=== PATIENT | female | born 1935 | race Caucasian/White ===

== ENCOUNTER → 2016-05-25 | Outpatient (CLI) | payer MEDICARE, BC ==
--- NOTE | 2016-05-25 16:06 | CR ---
EXAMINATION: Left knee HISTORY: Pain COMPARISON: 05/29/2016 TECHNIQUE: Single view FINDINGS/IMPRESSION: No acute osseous abnormality, dislocation, or fracture. Bone mineralization and joint spaces are grossly preserved.
== END ==
LOC: MW.CHORTHO 08:00
PROVIDERS: ATTEND Orthopaedic Surgery
DX: M25.562 Pain in left knee (principal); M17.12 Unilateral primary osteoarthritis, left knee
CPT/HCPCS: 20610; 73560-26-LT; 73560-LT; 99204; J1040

== ENCOUNTER 2017-07-07 18:48 | Inpatient (IN) | payer MEDICARE, BC ==
--- NOTE | 2017-07-07 19:14 | EDM.PDOC ---
ED HPI GENERAL MEDICAL PROBLEM - General Chief Complaint: Abdominal Pain Stated Complaint: STOMACH PAIN Time Seen by Provider: 07/07/17 19:13 Source of Information: Reports: Patient History Limitations: Reports: No Limitations - History of Present Illness INITIAL COMMENTS - FREE TEXT/NARRATIVE: HISTORY AND PHYSICAL: []82-year-old female presenting with abdominal pain bloating History of Present Illness: []She does been working on this for the last 4 weeks pain is increased today Patient has history of having hysterectomy she also has history of intraductal breast carcinoma Diverticulosis Patient lives at home Review of Systems: As per history of present illness and below otherwise all systems reviewed and negative. Past medical history: As per history of present illness and as reviewed below otherwise noncontributory. Surgical history: As per history of present illness and as reviewed below otherwise noncontributory. Social history: No reported history of drug or alcohol abuse. Family history: As per history of present illness and as reviewed below otherwise noncontributory. Physical exam: Alert and oriented female answering questions appropriately HEENT: Atraumatic, normocehpalic, pupils reactive, negative for conjunctival pallor or scleral icterus, mucous membranes moist, throat clear, neck supple, nontender, trachea midline. Lungs: Clear to auscultation, breath sounds equal bilaterally, chest non tender. Heart: S1S2, regular, negative for clicks, rubs, or JVD. Abdomen: Soft, nondistended, nontender. Negative for masses or hepatossplenmegaly. Negative for costovertebral tenderness. Pelvis: Stable nontender. Genitourinary: Deferred. Rectal: Deferred Extremities: Atraumatic, negative for cords or calf pain. Neurovascular unremarkable. Neuro: Awake, alert, oriented. Cranial nerves II through XII unremarkable. Cerebellum unremarkable. Motor and sensory unremarkable throughout. Exam nonfocal. Discussed this case with Dr. Nick Gannon who would recommend she be treated medically and he would be consulted for her. History this case with Dr. Munoz who is in agreement and will admit her inpatient consult for Dr. Gannon. With palpation and manipulation the abdomen her hernia on the right femoral region was reduced and pain was relieved significantly. Diagnostics: []CBC CMP blood cultures CT abdomen with contrast UA urine culture Therapeutics: []IV therapy Levaquin 750 IV Impression: []Colonic obstruction UTI Right femoral hernia Plan: []Admit as inpatient Definitive disposition and diagnosis as appropriate pending reevaluation and review of above. Onset: Gradual Duration: Week(s): (4) Location: Reports: Abdomen Quality: Reports: Ache Severity: Moderate Abdominal Pain Score (Numeric/FACES): 7 - Related Data Allergies Allergy/AdvReac Type Severity Reaction Status Date / Time Sulfa (Sulfonamide Allergy Nausea and Verified 04/21/16 08:59 Antibiotics) Vomiting Home Meds: Home Meds Anastrozole [Arimidex] 1 mg PO DAILY 07/07/17 [History] Past Medical History HEENT History: Reports: Cataract, Macular Degeneration Other HEENT History: wears glasses, has hearing aids but does not wear them Gastrointestinal History: Reports: None Genitourinary History: Reports: None [employer] History: Reports: Oncologic (Cancer) History: Reports: Breast Other Oncologic History: hx of endometrial cancer - Past Surgical History Head Surgeries/Procedures: Reports: None HEENT Surgical History: Reports: Cataract Surgery GI Surgical History: Reports: Colonoscopy Female Surgical History: Reports: Breast Biopsy, Hysterectomy, Oophorectomy Musculoskeletal Surgical History: Reports: Shoulder Surgery Social & Family History - Family History Family Medical History: Noncontributory - Tobacco Use Smoking Status *Q: Never Smoker Month/Year Tobacco Last Used: quit smoking 35 yrs ago Second Hand Smoke Exposure: No - Caffeine Use Caffeine Use: Reports: Coffee - Recreational Drug Use Recreational Drug Use: No ED ROS GENERAL - Review of Systems Review Of Systems: ROS reveals no pertinent complaints other than HPI. ED EXAM, GI/ABD - Physical Exam Exam: See Below (see dictation) Course - Vital Signs Last Recorded V/S: Last Vital Signs Temp 36.2 C 07/07/17 19:02 Pulse 84 07/07/17 20:46 Resp 12 07/07/17 20:46 BP 156/74 H 07/07/17 20:46 Pulse Ox 96 07/07/17 20:46 - Orders/Labs/Meds Orders: Active Orders 24 hr Category Date Time Status Patient Status [ADT] Stat ADT 07/07/17 21:17 Ordered EKG Documentation Completion [RC] STAT Care 07/07/17 19:18 Active Abdomen Pelvis w Cont [CT] Stat Exams 07/07/17 19:22 Taken UA W/MICROSCOPIC [URIN] Stat Lab 07/07/17 19:30 Ordered Levofloxacin/Dextrose 5%-Water [Levaquin in D5W 750 MG/ Med 07/07/17 21:19 Ordered 150 ML] 750 mg Premix Bag 1 bag IV ONETIME Sodium Chloride 0.9% [Normal Saline] 500 ml Med 07/07/17 21:30 Ordered IV ASDIRECTED Sodium Chloride 0.9% [Normal Saline] 500 ml Med 07/07/17 21:30 Ordered IV STAT Sodium Chloride 0.9% [Saline Flush] Med 07/07/17 19:18 Active 10 ml FLUSH ASDIRECTED PRN Sodium Chloride 0.9% [Saline Flush] Med 07/07/17 19:18 Active 2.5 ml FLUSH ASDIRECTED PRN Saline Lock Insert [OM.PC] Stat Oth 07/07/17 19:18 Ordered Medication Orders Levofloxacin/Dextrose 750 mg/ (Premix) 150 mls @ 100 mls/hr IV ONETIME ONE Stop: 07/07/17 22:48 Sodium Chloride (Normal Saline) 500 mls @ 125 mls/hr IV ASDIRECTED MALDONADO Sodium Chloride (Normal Saline) 500 mls @ 125 mls/hr IV STAT MALDONADO Sodium Chloride (Saline Flush) 10 ml FLUSH ASDIRECTED PRN PRN Reason: Keep Vein Open Sodium Chloride (Saline Flush) 2.5 ml FLUSH ASDIRECTED PRN PRN Reason: Keep Vein Open Labs: Laboratory Tests 07/07/17 07/07/17 07/07/17 Range/Units 19:30 19:35 19:35 WBC 7.76 (4.0-11.0) K/uL RBC 4.63 (4.30-5.90) M/uL Hgb 14.0 (12.0-16.0) g/dL Hct 41.1 (36.0-46.0) % MCV 88.8 (80.0-98.0) fL MCH 30.2 (27.0-32.0) pg MCHC 34.1 (31.0-37.0) g/dL RDW Std Deviation 42.0 (28.0-62.0) fl RDW Coeff of Irma 13 (11.0-15.0) % Plt Count 158 (150-400) K/uL MPV 11.90 (7.40-12.00) fL Neut % (Auto) 62.1 (48.0-80.0) % Lymph % (Auto) 20.2 (16.0-40.0) % [place] % (Auto) 15.9 H (0.0-15.0) % Eos % (Auto) 1.7 (0.0-7.0) % Baso % (Auto) 0.1 (0.0-1.5) % Neut # (Auto) 4.8 (1.4-5.7) K/uL Lymph # (Auto) 1.6 (0.6-2.4) K/uL [place] # (Auto) 1.2 H (0.0-0.8) K/uL Eos # (Auto) 0.1 (0.0-0.7) K/uL Baso # (Auto) 0.0 (0.0-0.1) K/uL Nucleated RBC % 0.0 /100WBC Nucleated RBCs # 0 K/uL INR Sodium 139 (136-145) mmol/L Potassium 3.1 L (3.5-5.1) mmol/L Chloride 103 (98-107) mmol/L Carbon Dioxide 27.4 (21.0-32.0) mmol/L BUN 17 (7.0-18.0) mg/dL Creatinine 0.7 (0.6-1.0) mg/dL Est Cr Clr Drug Dosing 49.49 mL/min Estimated GFR (MDRD) > 60.0 ml/min Glucose 122 H (74-106) mg/dL Calcium 9.6 (8.5-10.1) mg/dL Total Bilirubin 0.6 (0.2-1.0) mg/dL AST 21 (15-37) IU/L ALT 17 (14-63) IU/L Alkaline Phosphatase 68 (46-116) U/L Troponin I < 0.050 (0.000-0.056) ng/mL Total Protein 7.6 (6.4-8.2) g/dL Albumin 4.0 (3.4-5.0) g/dL Globulin 3.6 H (2.0-3.5) g/dL Albumin/Globulin Ratio 1.1 L (1.3-2.8) Urine Color YELLOW Urine Appearance SLT CLOUDY Urine pH 5.5 (5.0-8.0) Ur Specific [place] >= 1.030 (1.001-1.035) Urine Protein 30 (NEGATIVE) mg/dL Urine Glucose (UA) NEGATIVE (NEGATIVE) mg/dL Urine Ketones 15 H (NEGATIVE) mg/dL Urine Occult Blood NEGATIVE (NEGATIVE) Urine Nitrite NEGATIVE (NEGATIVE) Urine Bilirubin SMALL H (NEGATIVE) Urine Ictotest NEGATIVE Urine Urobilinogen 0.2 (<2.0) EU/dL Ur Leukocyte Esterase TRACE (NEGATIVE) Urine RBC 1-3 (0-2/HPF) Urine WBC 8-10 (0-5/HPF) Ur Epithelial Cells FEW (NONE-FEW) Calcium Oxalate Crystal FEW (NEGATIVE) Urine Bacteria 1+ H (NEGATIVE) 07/07/17 Range/Units 19:35 WBC (4.0-11.0) K/uL RBC (4.30-5.90) M/uL Hgb (12.0-16.0) g/dL Hct (36.0-46.0) % MCV (80.0-98.0) fL MCH (27.0-32.0) pg MCHC (31.0-37.0) g/dL RDW Std Deviation (28.0-62.0) fl RDW Coeff of [place] (11.0-15.0) % Plt Count (150-400) K/uL MPV (7.40-12.00) fL Neut % (Auto) (48.0-80.0) % Lymph % (Auto) (16.0-40.0) % [place] % (Auto) (0.0-15.0) % Eos % (Auto) (0.0-7.0) % Baso % (Auto) (0.0-1.5) % Neut # (Auto) (1.4-5.7) K/uL Lymph # (Auto) (0.6-2.4) K/uL [place] # (Auto) (0.0-0.8) K/uL Eos # (Auto) (0.0-0.7) K/uL Baso # (Auto) (0.0-0.1) K/uL Nucleated RBC % /100WBC Nucleated RBCs # K/uL INR 0.99 Sodium (136-145) mmol/L Potassium (3.5-5.1) mmol/L Chloride (98-107) mmol/L Carbon Dioxide (21.0-32.0) mmol/L BUN (7.0-18.0) mg/dL Creatinine (0.6-1.0) mg/dL Est Cr Clr Drug Dosing mL/min Estimated GFR (MDRD) ml/min Glucose (74-106) mg/dL Calcium (8.5-10.1) mg/dL Total Bilirubin (0.2-1.0) mg/dL AST (15-37) IU/L ALT (14-63) IU/L Alkaline Phosphatase (46-116) U/L Troponin I (0.000-0.056) ng/mL Total Protein (6.4-8.2) g/dL Albumin (3.4-5.0) g/dL Globulin (2.0-3.5) g/dL Albumin/Globulin Ratio (1.3-2.8) Urine Color Urine Appearance Urine pH (5.0-8.0) Ur Specific [place] (1.001-1.035) Urine Protein (NEGATIVE) mg/dL Urine Glucose (UA) (NEGATIVE) mg/dL Urine Ketones (NEGATIVE) mg/dL Urine Occult Blood (NEGATIVE) Urine Nitrite (NEGATIVE) Urine Bilirubin (NEGATIVE) Urine Ictotest Urine Urobilinogen (<2.0) EU/dL Ur Leukocyte Esterase (NEGATIVE) Urine RBC (0-2/HPF) Urine WBC (0-5/HPF) Ur Epithelial Cells (NONE-FEW) Calcium Oxalate Crystal (NEGATIVE) Urine Bacteria (NEGATIVE) Meds: Medications Generic Name Dose Route Start Last Admin Trade Name Freq PRN Reason Stop Dose Admin Levofloxacin/Dextrose 750 mg/ 150 mls @ 100 mls/hr 07/07/17 21:19 Premix IV 07/07/17 22:48 ONETIME ONE Sodium Chloride 500 mls @ 125 mls/hr 07/07/17 21:30 Normal Saline IV ASDIRECTED MALDONADO Sodium Chloride 500 mls @ 125 mls/hr 07/07/17 21:30 Normal Saline IV STAT MALDONADO Sodium Chloride 10 ml 07/07/17 19:18 Saline Flush FLUSH ASDIRECTED PRN Keep Vein Open Sodium Chloride 2.5 ml 07/07/17 19:18 Saline Flush FLUSH ASDIRECTED PRN Keep Vein Open Discontinued Medications Generic Name Dose Route Start Last Admin Trade Name Freq PRN Reason Stop Dose Admin Iopamidol 100 ml 07/07/17 19:42 07/07/17 19:44 Isovue Multipack-370 (76%) IVPUSH 07/07/17 19:43 100 ml ONETIME STA Administration Departure - Departure Time of Disposition: 21:27 Disposition: Admitted As Inpatient 64 Condition: Good Clinical Impression: Colonic obstruction, Femoral hernia of right side UTI (urinary tract infection) Qualifiers: Urinary tract infection type: acute cystitis Hematuria presence: without hematuria Qualified Code(s): N30.00 - Acute cystitis without hematuria - Discharge Information Referrals: Asad Johnson MD [Primary Care Provider] - Forms: ED Department Discharge - My Orders Last 24 Hours: My Active Orders 07/07/17 19:18 EKG Documentation Completion [RC] STAT Sodium Chloride 0.9% [Saline Flush] 10 ml FLUSH ASDIRECTED PRN Sodium Chloride 0.9% [Saline Flush] 2.5 ml FLUSH ASDIRECTED PRN Saline Lock Insert [OM.PC] Stat 07/07/17 19:22 Abdomen Pelvis w Cont [CT] Stat 07/07/17 19:30 UA W/MICROSCOPIC [URIN] Stat 07/07/17 21:17 Patient Status [ADT] Stat 07/07/17 21:19 Levofloxacin/Dextrose 5%-Water [Levaquin in D5W 750 MG/150 ML] 750 mg Premix Bag 1 bag IV ONETIME 07/07/17 21:30 Sodium Chloride 0.9% [Normal Saline] 500 ml IV ASDIRECTED Sodium Chloride 0.9% [Normal Saline] 500 ml IV STAT - Assessment/Plan Last 24 Hours: My Active Orders 07/07/17 19:18 EKG Documentation Completion [RC] STAT Sodium Chloride 0.9% [Saline Flush] 10 ml FLUSH ASDIRECTED PRN Sodium Chloride 0.9% [Saline Flush] 2.5 ml FLUSH ASDIRECTED PRN Saline Lock Insert [OM.PC] Stat 07/07/17 19:22 Abdomen Pelvis w Cont [CT] Stat 07/07/17 19:30 UA W/MICROSCOPIC [URIN] Stat 07/07/17 21:17 Patient Status [ADT] Stat 07/07/17 21:19 Levofloxacin/Dextrose 5%-Water [Levaquin in D5W 750 MG/150 ML] 750 mg Premix Bag 1 bag IV ONETIME 07/07/17 21:30 Sodium Chloride 0.9% [Normal Saline] 500 ml IV ASDIRECTED Sodium Chloride 0.9% [Normal Saline] 500 ml IV STAT
[2017-07-07] MEDS ORDERED: Sodium Chloride 0.9% 10 ML Syringe FLUSH PRN (19:18)
[2017-07-07] MEDS ORDERED: Sodium Chloride 0.9% 2.5 ML Syringe FLUSH PRN (19:18)
[2017-07-07] MEDS ORDERED: Iopamidol 755 MG/ML 200 ML Multipack Bottle IVPUSH STA (19:42)
[2017-07-07 20:09] LABS: SODIUM,NA 139 mmol/L (136-145)
[2017-07-07 20:10] LABS: CHLORIDE,CL 103 mmol/L (98-107)
[2017-07-07] MEDS ORDERED: Levofloxacin/Dextrose 5%-Water 750 MG in Premix Bag 1 BAG IV ONE (21:19)
[2017-07-07] MEDS: Sodium Chloride 0.9% 500 ML IV SCH (21:26)
[2017-07-07] MEDS ORDERED: Sodium Chloride 0.9% 500 ML IV SCH (21:30)
--- NOTE | 2017-07-07 22:05 | PCM.CONS ---
<Contreras Wick - Last Filed: 07/07/17 21:58> H&P History of Present Illness - General Date of Service: 07/07/17 Admit Problem/Dx: Admission Diagnosis/Problem Admission Diagnosis/Problem Obstruction of colon Source of Information: Patient, Family, Old Records - History of Present Illness Initial Comments - Free Text/Narative: Mrs. Johnson is a 82 yr old female who presents to the ER today for evaluation of abdominal pain. She has had issues over the past 4 weeks of abdominal discomfort and alternating bowel habits. At times she would become constipated leading to nausea and emesis subsequently followed by diarrhea. In the last 4 days her abdominal pain has been worse and she decided it was time to be evaluated. The pain in generalized in her lower abdomen bilaterally and radiates up both sides. It is intermittent and crampy. 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 Lifting him early today she felt a bulge in her right groin with associated pain in that area as well. Her last bowel movement was earlier today. She is passing less flatus also. At this time she denies nausea, vomiting, fever, chills, chest pain, or SOB. She believes her last colonoscopy was about 5 yrs ago and she was not aware of any abnormalities at that time, although a prior colonoscopy did have polyps. Her PMH is notable for right breast cancer s/p partial mastectomy and medical treatment. She had a [facility] BSO for endometrial cancer in the . Abdominal Pain Score (Numeric/FACES): 7 - Related Data Allergies/Adverse Reactions: Allergies Allergy/AdvReac Type Severity Reaction Status Date / Time Sulfa (Sulfonamide Allergy Nausea and Verified 04/21/16 08:59 Antibiotics) Vomiting Home Medications: Home Meds Anastrozole [Arimidex] 1 mg PO DAILY 07/07/17 [History] Past Medical History HEENT History: Reports: Cataract, Macular Degeneration Other HEENT History: wears glasses, has hearing aids but does not wear them Cardiovascular History: Reports: Other (See Below) (History of nuclear stress test followed by angiogram in that was normal per her report.) Respiratory History: Reports: None Gastrointestinal History: Reports: None, Colon Polyp, Other (See Below) Other Gastrointestinal History: Irregular bowel habits over last 1 month. 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 OB/BYN History: JUAN w/BSO Oncologic (Cancer) History: Reports: Breast Other Oncologic History: hx of endometrial cancer - Past Surgical History Head Surgeries/Procedures: Reports: None HEENT Surgical History: Reports: Cataract Surgery GI Surgical History: Reports: Colonoscopy Female Surgical History: Reports: Breast Biopsy, Hysterectomy, Oophorectomy, Other (See Below) (Partial mastectomy with SLND.) Musculoskeletal Surgical History: Reports: Shoulder Surgery Social & Family History - Family History Family Medical History: Noncontributory - Tobacco Use Smoking Status *Q: Never Smoker Month/Year Tobacco Last Used: quit smoking 35 yrs ago Second Hand Smoke Exposure: No - Caffeine Use Caffeine Use: Reports: Coffee - Recreational Drug Use Recreational Drug Use: No H&P Review of Systems - Review of Systems: Review Of Systems: See Below General: Reports: Other (Denies fever, chills. ) Pulmonary: Reports: No Symptoms (No SOB or pulmonary problems. ) Cardiovascular: Reports: No Symptoms (No chest pain or current cardiac problems) Gastrointestinal: Reports: Abdominal Pain, Constipation, Diarrhea (Currently denies nausea and vomiting. Endorses abdominal distension. ) Exam - Exam Exam: See Below - Vital Signs Vital Signs: Last Vital Signs Temp 36.2 C 07/07/17 19:02 Pulse 84 07/07/17 20:46 Resp 12 07/07/17 20:46 BP 156/74 H 07/07/17 20:46 Pulse Ox 96 07/07/17 20:46 Weight: 145 lb - Exam General: Alert, Cooperative, Other (No acute distress. ) HEENT: Conjunctiva Clear Neck: Supple, Trachea Midline Lungs: Clear to Auscultation, Normal Respiratory Effort Cardiovascular: Regular Rate GI/Abdominal Exam: Soft, Other (Mild distension. Generalized abdominal discomfort. Palpable bulge in right groin. No rebound or peritoneal signs. ) Extremities: Normal Inspection, No Pedal Edema - Patient Data Lab Results Last 24 hrs: Laboratory Results - last 24 hr 07/07/17 07/07/17 07/07/17 Range/Units 19:30 19:35 19:35 WBC 7.76 (4.0-11.0) K/uL RBC 4.63 (4.30-5.90) M/uL Hgb 14.0 (12.0-16.0) g/dL Hct 41.1 (36.0-46.0) % MCV 88.8 (80.0-98.0) fL MCH 30.2 (27.0-32.0) pg MCHC 34.1 (31.0-37.0) g/dL RDW Std Deviation 42.0 (28.0-62.0) fl RDW Coeff of Irma 13 (11.0-15.0) % Plt Count 158 (150-400) K/uL MPV 11.90 (7.40-12.00) fL Neut % (Auto) 62.1 (48.0-80.0) % Lymph % (Auto) 20.2 (16.0-40.0) % [place] % (Auto) 15.9 H (0.0-15.0) % Eos % (Auto) 1.7 (0.0-7.0) % Baso % (Auto) 0.1 (0.0-1.5) % Neut # (Auto) 4.8 (1.4-5.7) K/uL Lymph # (Auto) 1.6 (0.6-2.4) K/uL [place] # (Auto) 1.2 H (0.0-0.8) K/uL Eos # (Auto) 0.1 (0.0-0.7) K/uL Baso # (Auto) 0.0 (0.0-0.1) K/uL Nucleated RBC % 0.0 /100WBC Nucleated RBCs # 0 K/uL INR Sodium 139 (136-145) mmol/L Potassium 3.1 L (3.5-5.1) mmol/L Chloride 103 (98-107) mmol/L Carbon Dioxide 27.4 (21.0-32.0) mmol/L BUN 17 (7.0-18.0) mg/dL Creatinine 0.7 (0.6-1.0) mg/dL Est Cr Clr Drug Dosing 49.49 mL/min Estimated GFR (MDRD) > 60.0 ml/min Glucose 122 H (74-106) mg/dL Calcium 9.6 (8.5-10.1) mg/dL Total Bilirubin 0.6 (0.2-1.0) mg/dL AST 21 (15-37) IU/L ALT 17 (14-63) IU/L Alkaline Phosphatase 68 (46-116) U/L Troponin I < 0.050 (0.000-0.056) ng/mL Total Protein 7.6 (6.4-8.2) g/dL Albumin 4.0 (3.4-5.0) g/dL Globulin 3.6 H (2.0-3.5) g/dL Albumin/Globulin Ratio 1.1 L (1.3-2.8) Urine Color YELLOW Urine Appearance SLT CLOUDY Urine pH 5.5 (5.0-8.0) Ur Specific Dalton >= 1.030 (1.001-1.035) Urine Protein 30 (NEGATIVE) mg/dL Urine Glucose (UA) NEGATIVE (NEGATIVE) mg/dL Urine Ketones 15 H (NEGATIVE) mg/dL Urine Occult Blood NEGATIVE (NEGATIVE) Urine Nitrite NEGATIVE (NEGATIVE) Urine Bilirubin SMALL H (NEGATIVE) Urine Ictotest NEGATIVE Urine Urobilinogen 0.2 (<2.0) EU/dL Ur Leukocyte Esterase TRACE (NEGATIVE) Urine RBC 1-3 (0-2/HPF) Urine WBC 8-10 (0-5/HPF) Ur Epithelial Cells FEW (NONE-FEW) Calcium Oxalate Crystal FEW (NEGATIVE) Urine Bacteria 1+ H (NEGATIVE) 07/07/17 Range/Units 19:35 WBC (4.0-11.0) K/uL RBC (4.30-5.90) M/uL Hgb (12.0-16.0) g/dL Hct (36.0-46.0) % MCV (80.0-98.0) fL MCH (27.0-32.0) pg MCHC (31.0-37.0) g/dL RDW Std Deviation (28.0-62.0) fl RDW Coeff of Irma (11.0-15.0) % Plt Count (150-400) K/uL MPV (7.40-12.00) fL Neut % (Auto) (48.0-80.0) % Lymph % (Auto) (16.0-40.0) % [place] % (Auto) (0.0-15.0) % Eos % (Auto) (0.0-7.0) % Baso % (Auto) (0.0-1.5) % Neut # (Auto) (1.4-5.7) K/uL Lymph # (Auto) (0.6-2.4) K/uL [place] # (Auto) (0.0-0.8) K/uL Eos # (Auto) (0.0-0.7) K/uL Baso # (Auto) (0.0-0.1) K/uL Nucleated RBC % /100WBC Nucleated RBCs # K/uL INR 0.99 Sodium (136-145) mmol/L Potassium (3.5-5.1) mmol/L Chloride (98-107) mmol/L Carbon Dioxide (21.0-32.0) mmol/L BUN (7.0-18.0) mg/dL Creatinine (0.6-1.0) mg/dL Est Cr Clr Drug Dosing mL/min Estimated GFR (MDRD) ml/min Glucose (74-106) mg/dL Calcium (8.5-10.1) mg/dL Total Bilirubin (0.2-1.0) mg/dL AST (15-37) IU/L ALT (14-63) IU/L Alkaline Phosphatase (46-116) U/L Troponin I (0.000-0.056) ng/mL Total Protein (6.4-8.2) g/dL Albumin (3.4-5.0) g/dL Globulin (2.0-3.5) g/dL Albumin/Globulin Ratio (1.3-2.8) Urine Color Urine Appearance Urine pH (5.0-8.0) Ur Specific Dalton (1.001-1.035) Urine Protein (NEGATIVE) mg/dL Urine Glucose (UA) (NEGATIVE) mg/dL Urine Ketones (NEGATIVE) mg/dL Urine Occult Blood (NEGATIVE) Urine Nitrite (NEGATIVE) Urine Bilirubin (NEGATIVE) Urine Ictotest Urine Urobilinogen (<2.0) EU/dL Ur Leukocyte Esterase (NEGATIVE) Urine RBC (0-2/HPF) Urine WBC (0-5/HPF) Ur Epithelial Cells (NONE-FEW) Calcium Oxalate Crystal (NEGATIVE) Urine Bacteria (NEGATIVE) Result Diagrams: 07/07/17 19:35 07/07/17 19:35 Consult PN Assessment/Plan Procedures: Procedures BIOPSY/REMOVAL LYMPH NODES (04/26/16) BX BREAST 1ST LESION US IMAG (03/08/16) CHEST X-RAY 2VW FRONTAL&LATL (03/15/16) COMPLETE CBC W/AUTO DIFF WBC (03/21/17) COMPREHEN METABOLIC PANEL (03/21/17) DXA BONE DENSITY AXIAL (03/21/17) METABOLIC PANEL TOTAL CA (04/26/16) PARTIAL MASTECTOMY (04/26/16) PATH CONSULT INTRAOP 1 BLOC (04/26/16) RA TRACER ID OF SENTINL NODE (04/26/16) ROUTINE VENIPUNCTURE (03/21/17) TISSUE EXAM BY PATHOLOGIST (04/26/16) TISSUE EXAM BY PATHOLOGIST (04/26/16) (1) Colonic obstruction SNOMED Code(s): 02618416 Code(s): K56.609 - UNSP INTESTNL OBST, UNSP TO PARTIAL VERSUS COMPLETE OBST Current Visit: Yes Assessment:: 82 yr old female who presents with a high grade colonic obstruction. She has still been moving her bowels. CT imaging reviewed. There is also what appears to be a femoral hernia in the right groin likely containing small bowel. history of abdominal hysterectomy with BSO followed by radiation. At this time she is hemodynamically stable without peritoneal signs or an acute abdomen. Problem List Initiated/Reviewed/Updated: Yes Plan: Admit overnight for resuscitation Keep NPO Anticipate transfer to higher level facility tomorrow Anticipate she will require colonic resection for obstructing lesion/area <Nick Gannon - Last Filed: 07/07/17 22:32> H&P History of Present Illness - General Admit Problem/Dx: Admission Diagnosis/Problem Admission Diagnosis/Problem Obstruction of colon History Limitations: Reports: No Limitations - History of Present Illness Onset of Symptoms: Reports: Gradual Duration of Symptoms: Reports: Week(s): (4), Getting Worse Location: Reports: Abdomen Quality: Reports: Ache, Pressure Severity: Moderate Improves with: Reports: Rest Worsens with: Reports: None Context: Reports: Sick Contact, Lifting Associated Symptoms: Reports: Nausea/Vomiting Past Medical History - Past Surgical History Female Surgical History: Reports: Breast Biopsy (Partial right mastectomy with SLN biopsy), Other (See Below) Other Female Surgeries/Procedures: Hysterectomy was done for uterine/ endometrial carcinoma. She then had radiation seed treatments in [place]. Oncologic Surgical History: Reports: Lumpectomy (right lateral with SLN biopsy) H&P Review of Systems - Review of Systems: HEENT: Reports: Visual Changes (legally blind) Genitourinary: Denies: Dysuria, Frequency, Burning, Pain, Urgency, Incontinence Musculoskeletal: Reports: No Symptoms Skin: Denies: Cyanosis, Jaundice Psychiatric: Denies: Confusion, Depression, Mood Lability, Anxiety Neurological: Reports: No Symptoms Hematologic/Lymphatic: Denies: Anemia Immunologic: Reports: No Symptoms Exam - Vital Signs Vital Signs: Last Vital Signs Temp 97.2 F 07/07/17 19:02 Pulse 84 07/07/17 20:46 Resp 12 07/07/17 20:46 BP 156/74 H 07/07/17 20:46 Pulse Ox 96 07/07/17 20:46 - Exam GI/Abdominal Exam: Non-Tender, No Organomegaly, Abnormal Bowel Sounds (high pitched, no tinkles or rushes). No: Guarding, Rigid, Rebound, Tender (Female) Exam: Deferred Rectal (Female) Exam: Deferred Back Exam: Normal Inspection Skin: Warm, Dry, Intact Neurological: Cranial Nerves Intact, Normal Speech Neuro Extensive - Mental Status: Alert, Oriented x3, Normal Mood/Affect, Normal Cognition Psychiatric: Alert, Normal Affect, Normal Mood - Patient Data Lab Results Last 24 hrs: Laboratory Results - last 24 hr 07/07/17 07/07/17 07/07/17 Range/Units 19:30 19:35 19:35 WBC 7.76 (4.0-11.0) K/uL RBC 4.63 (4.30-5.90) M/uL Hgb 14.0 (12.0-16.0) g/dL Hct 41.1 (36.0-46.0) % MCV 88.8 (80.0-98.0) fL MCH 30.2 (27.0-32.0) pg MCHC 34.1 (31.0-37.0) g/dL RDW Std Deviation 42.0 (28.0-62.0) fl RDW Coeff of Irma 13 (11.0-15.0) % Plt Count 158 (150-400) K/uL MPV 11.90 (7.40-12.00) fL Neut % (Auto) 62.1 (48.0-80.0) % Lymph % (Auto) 20.2 (16.0-40.0) % [place] % (Auto) 15.9 H (0.0-15.0) % Eos % (Auto) 1.7 (0.0-7.0) % Baso % (Auto) 0.1 (0.0-1.5) % Neut # (Auto) 4.8 (1.4-5.7) K/uL Lymph # (Auto) 1.6 (0.6-2.4) K/uL [place] # (Auto) 1.2 H (0.0-0.8) K/uL Eos # (Auto) 0.1 (0.0-0.7) K/uL Baso # (Auto) 0.0 (0.0-0.1) K/uL Nucleated RBC % 0.0 /100WBC Nucleated RBCs # 0 K/uL INR Sodium 139 (136-145) mmol/L Potassium 3.1 L (3.5-5.1) mmol/L Chloride 103 (98-107) mmol/L Carbon Dioxide 27.4 (21.0-32.0) mmol/L BUN 17 (7.0-18.0) mg/dL Creatinine 0.7 (0.6-1.0) mg/dL Est Cr Clr Drug Dosing 49.49 mL/min Estimated GFR (MDRD) > 60.0 ml/min Glucose 122 H (74-106) mg/dL Calcium 9.6 (8.5-10.1) mg/dL Total Bilirubin 0.6 (0.2-1.0) mg/dL AST 21 (15-37) IU/L ALT 17 (14-63) IU/L Alkaline Phosphatase 68 (46-116) U/L Troponin I < 0.050 (0.000-0.056) ng/mL Total Protein 7.6 (6.4-8.2) g/dL Albumin 4.0 (3.4-5.0) g/dL Globulin 3.6 H (2.0-3.5) g/dL Albumin/Globulin Ratio 1.1 L (1.3-2.8) Urine Color YELLOW Urine Appearance SLT CLOUDY Urine pH 5.5 (5.0-8.0) Ur Specific Dalton >= 1.030 (1.001-1.035) Urine Protein 30 (NEGATIVE) mg/dL Urine Glucose (UA) NEGATIVE (NEGATIVE) mg/dL Urine Ketones 15 H (NEGATIVE) mg/dL Urine Occult Blood NEGATIVE (NEGATIVE) Urine Nitrite NEGATIVE (NEGATIVE) Urine Bilirubin SMALL H (NEGATIVE) Urine Ictotest NEGATIVE Urine Urobilinogen 0.2 (<2.0) EU/dL Ur Leukocyte Esterase TRACE (NEGATIVE) Urine RBC 1-3 (0-2/HPF) Urine WBC 8-10 (0-5/HPF) Ur Epithelial Cells FEW (NONE-FEW) Calcium Oxalate Crystal FEW (NEGATIVE) Urine Bacteria 1+ H (NEGATIVE) 07/07/17 Range/Units 19:35 WBC (4.0-11.0) K/uL RBC (4.30-5.90) M/uL Hgb (12.0-16.0) g/dL Hct (36.0-46.0) % MCV (80.0-98.0) fL MCH (27.0-32.0) pg MCHC (31.0-37.0) g/dL RDW Std Deviation (28.0-62.0) fl RDW Coeff of Irma (11.0-15.0) % Plt Count (150-400) K/uL MPV (7.40-12.00) fL Neut % (Auto) (48.0-80.0) % Lymph % (Auto) (16.0-40.0) % [place] % (Auto) (0.0-15.0) % Eos % (Auto) (0.0-7.0) % Baso % (Auto) (0.0-1.5) % Neut # (Auto) (1.4-5.7) K/uL Lymph # (Auto) (0.6-2.4) K/uL [place] # (Auto) (0.0-0.8) K/uL Eos # (Auto) (0.0-0.7) K/uL Baso # (Auto) (0.0-0.1) K/uL Nucleated RBC % /100WBC Nucleated RBCs # K/uL INR 0.99 Sodium (136-145) mmol/L Potassium (3.5-5.1) mmol/L Chloride (98-107) mmol/L Carbon Dioxide (21.0-32.0) mmol/L BUN (7.0-18.0) mg/dL Creatinine (0.6-1.0) mg/dL Est Cr Clr Drug Dosing mL/min Estimated GFR (MDRD) ml/min Glucose (74-106) mg/dL Calcium (8.5-10.1) mg/dL Total Bilirubin (0.2-1.0) mg/dL AST (15-37) IU/L ALT (14-63) IU/L Alkaline Phosphatase (46-116) U/L Troponin I (0.000-0.056) ng/mL Total Protein (6.4-8.2) g/dL Albumin (3.4-5.0) g/dL Globulin (2.0-3.5) g/dL Albumin/Globulin Ratio (1.3-2.8) Urine Color Urine Appearance Urine pH (5.0-8.0) Ur Specific Dalton (1.001-1.035) Urine Protein (NEGATIVE) mg/dL Urine Glucose (UA) (NEGATIVE) mg/dL Urine Ketones (NEGATIVE) mg/dL Urine Occult Blood (NEGATIVE) Urine Nitrite (NEGATIVE) Urine Bilirubin (NEGATIVE) Urine Ictotest Urine Urobilinogen (<2.0) EU/dL Ur Leukocyte Esterase (NEGATIVE) Urine RBC (0-2/HPF) Urine WBC (0-5/HPF) Ur Epithelial Cells (NONE-FEW) Calcium Oxalate Crystal (NEGATIVE) Urine Bacteria (NEGATIVE) Result Diagrams: 07/07/17 19:35 07/07/17 19:35 Imaging Impressions Last 24 hrs: CT personally reviewed. There is significant colonic and small bowel distension with significant narrowing in the distal sigmoid colon. There is a history of diverticulosis. The high grade obstruction could represent a neoplastic process. Fenoral hernia on the right was also appreciated. Consult PN Assessment/Plan Procedures: Procedures BIOPSY/REMOVAL LYMPH NODES (04/26/16) BX BREAST 1ST LESION US IMAG (03/08/16) CHEST X-RAY 2VW FRONTAL&LATL (03/15/16) COMPLETE CBC W/AUTO DIFF WBC (03/21/17) COMPREHEN METABOLIC PANEL (03/21/17) DXA BONE DENSITY AXIAL (03/21/17) METABOLIC PANEL TOTAL CA (04/26/16) PARTIAL MASTECTOMY (04/26/16) PATH CONSULT INTRAOP 1 BLOC (04/26/16) RA TRACER ID OF SENTINL NODE (04/26/16) ROUTINE VENIPUNCTURE (03/21/17) TISSUE EXAM BY PATHOLOGIST (04/26/16) TISSUE EXAM BY PATHOLOGIST (04/26/16) (1) Endometrial cancer SNOMED Code(s): 098539092 Code(s): C54.1 - MALIGNANT NEOPLASM OF ENDOMETRIUM Priority: Low Current Visit: Yes (2) S/P radiation therapy greater than twelve weeks ago SNOMED Code(s): 933099830 Code(s): Z92.3 - PERSONAL HISTORY OF IRRADIATION Priority: Low Current Visit: Yes (3) Colonic obstruction SNOMED Code(s): 12651452 Code(s): K56.609 - UNSP INTESTNL OBST, UNSP TO PARTIAL VERSUS COMPLETE OBST Priority: High Current Visit: Yes (4) Femoral hernia of right side SNOMED Code(s): 10323807 Code(s): K41.90 - UNIL FEMORAL HERNIA, W/O OBST OR GANGRENE, NOT SPCF RECUR Priority: High Current Visit: Yes (5) UTI (urinary tract infection) SNOMED Code(s): 62514806 Code(s): N39.0 - URINARY TRACT INFECTION, SITE NOT SPECIFIED Priority: Low Current Visit: Yes Qualifiers: Urinary tract infection type: acute cystitis Hematuria presence: without hematuria Qualified Code(s): N30.00 - Acute cystitis without hematuria (6) Invasive ductal carcinoma of breast, female SNOMED Code(s): 837707149 Code(s): C50.919 - MALIGNANT NEOPLASM OF UNSP SITE OF UNSPECIFIED FEMALE BREAST Priority: Low Current Visit: No Qualifiers: Laterality: right Qualified Code(s): C50.911 - Malignant neoplasm of unspecified site of right female breast Problem List Initiated/Reviewed/Updated: Yes Plan: Patient seen and examined with Dr. Wick. 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 Domenico Betancourt in [place] tomorrow--patient may be able to a colonic stent placed across the obstruction to allow for bowel prep and hopefully decrease her chances of requiring temporary/permanent colostomy and perhaps a one stage resection and anastomosis.
[2017-07-08] MEDS ORDERED: Morphine 10 MG/ML Syringe IVPUSH PRN (00:02)
[2017-07-08] MEDS ORDERED: Ondansetron 4 MG/2 ML SDV IVPUSH PRN (00:05)
[2017-07-08] MEDS ORDERED: Sodium Chloride 0.9% 1,000 ML IV SCH (00:15)
[2017-07-08] MEDS ORDERED: Sodium Chloride 0.9% with KCl 1,000 ML IV SCH (02:00)
--- NOTE | 2017-07-08 02:01 | PCM.HP ---
H&P History of Present Illness - General Admit Problem/Dx: Admission Diagnosis/Problem Admission Diagnosis/Problem Obstruction of colon - History of Present Illness Initial Comments - Free Text/Narative: 82 yo female who presents with four week history of intermitent lower abdominal pain. PAtient reports nausea and vomiting with the pain. Today the deidra was severe and was not associated with any nausea of diarrhea. She is passing flatus. She was seen in the ED and found to have a colonic obstruction on CT scan and UTI on UA. Abdominal Pain Score (Numeric/FACES): 7 - Related Data Allergies/Adverse Reactions: Allergies Allergy/AdvReac Type Severity Reaction Status Date / Time Sulfa (Sulfonamide Allergy Nausea and Verified 04/21/16 08:59 Antibiotics) Vomiting Home Medications: Home Meds Anastrozole [Arimidex] 1 mg PO DAILY 07/07/17 [History] Ibandronate Sodium 150 mg PO 07/07/17 [History] Pregabalin [Lyrica] 100 mg PO DAILY 07/07/17 [History] Past Medical History HEENT History: Reports: Cataract, Macular Degeneration Other HEENT History: wears glasses, has hearing aids but does not wear them Cardiovascular History: Reports: Other (See Below) Respiratory History: Reports: None Gastrointestinal History: Reports: None, Colon Polyp, Other (See Below) Other Gastrointestinal History: Irregular bowel habits over last 1 month. Genitourinary History: Reports: None [employer] History: Reports: Other OB/BYN History: JUAN w/BSO Oncologic (Cancer) History: Reports: Breast Other Oncologic History: hx of endometrial cancer - Infectious Disease History Infectious Disease History: Reports: Chicken Pox, Measles, Mumps, Shingles - Past Surgical History Head Surgeries/Procedures: Reports: None HEENT Surgical History: Reports: Cataract Surgery GI Surgical History: Reports: Colonoscopy Female Surgical History: Reports: Breast Biopsy, Other (See Below) Other Female Surgeries/Procedures: Hysterectomy was done for uterine/ endometrial carcinoma. She then had radiation seed treatments in [place]. Musculoskeletal Surgical History: Reports: Shoulder Surgery Oncologic Surgical History: Reports: Lumpectomy Social & Family History - Family History Family Medical History: Noncontributory - Tobacco Use Smoking Status *Q: Never Smoker Month/Year Tobacco Last Used: quit smoking 35 yrs ago Second Hand Smoke Exposure: No - Caffeine Use Caffeine Use: Reports: Coffee - Recreational Drug Use Recreational Drug Use: No H&P Review of Systems - Review of Systems: Review Of Systems: ROS reveals no pertinent complaints other than HPI. Exam - Exam Exam: See Below - Vital Signs Vital Signs: Last Vital Signs Temp 36.9 C 07/07/17 22:42 Pulse 81 07/07/17 22:42 Resp 16 07/07/17 22:42 BP 155/70 H 07/07/17 22:42 Pulse Ox 95 07/07/17 22:42 Weight: 68.175 kg - Exam General: Alert, Oriented HEENT: Mucosa Moist & [place] Lungs: Clear to Auscultation, Normal Respiratory Effort Cardiovascular: Regular Rate, Regular Rhythm GI/Abdominal Exam: Soft, Non-Tender. No: No Distention, Distended, Guarding Extremities: Non-Tender, No Pedal Edema Skin: Warm, Dry, Intact - Patient Data Lab Results Last 24 hrs: Laboratory Results - last 24 hr 07/07/17 07/07/17 07/07/17 Range/Units 19:30 19:35 19:35 WBC 7.76 (4.0-11.0) K/uL RBC 4.63 (4.30-5.90) M/uL Hgb 14.0 (12.0-16.0) g/dL Hct 41.1 (36.0-46.0) % MCV 88.8 (80.0-98.0) fL MCH 30.2 (27.0-32.0) pg MCHC 34.1 (31.0-37.0) g/dL RDW Std Deviation 42.0 (28.0-62.0) fl RDW Coeff of [place] 13 (11.0-15.0) % Plt Count 158 (150-400) K/uL MPV 11.90 (7.40-12.00) fL Neut % (Auto) 62.1 (48.0-80.0) % Lymph % (Auto) 20.2 (16.0-40.0) % [place] % (Auto) 15.9 H (0.0-15.0) % Eos % (Auto) 1.7 (0.0-7.0) % Baso % (Auto) 0.1 (0.0-1.5) % Neut # (Auto) 4.8 (1.4-5.7) K/uL Lymph # (Auto) 1.6 (0.6-2.4) K/uL [place] # (Auto) 1.2 H (0.0-0.8) K/uL Eos # (Auto) 0.1 (0.0-0.7) K/uL Baso # (Auto) 0.0 (0.0-0.1) K/uL Nucleated RBC % 0.0 /100WBC Nucleated RBCs # 0 K/uL INR Sodium 139 (136-145) mmol/L Potassium 3.1 L (3.5-5.1) mmol/L Chloride 103 (98-107) mmol/L Carbon Dioxide 27.4 (21.0-32.0) mmol/L BUN 17 (7.0-18.0) mg/dL Creatinine 0.7 (0.6-1.0) mg/dL Est Cr Clr Drug Dosing 49.49 mL/min Estimated GFR (MDRD) > 60.0 ml/min Glucose 122 H (74-106) mg/dL Calcium 9.6 (8.5-10.1) mg/dL Total Bilirubin 0.6 (0.2-1.0) mg/dL AST 21 (15-37) IU/L ALT 17 (14-63) IU/L Alkaline Phosphatase 68 (46-116) U/L Troponin I < 0.050 (0.000-0.056) ng/mL Total Protein 7.6 (6.4-8.2) g/dL Albumin 4.0 (3.4-5.0) g/dL Globulin 3.6 H (2.0-3.5) g/dL Albumin/Globulin Ratio 1.1 L (1.3-2.8) Urine Color YELLOW Urine Appearance SLT CLOUDY Urine pH 5.5 (5.0-8.0) Ur Specific [place] >= 1.030 (1.001-1.035) Urine Protein 30 (NEGATIVE) mg/dL Urine Glucose (UA) NEGATIVE (NEGATIVE) mg/dL Urine Ketones 15 H (NEGATIVE) mg/dL Urine Occult Blood NEGATIVE (NEGATIVE) Urine Nitrite NEGATIVE (NEGATIVE) Urine Bilirubin SMALL H (NEGATIVE) Urine Ictotest NEGATIVE Urine Urobilinogen 0.2 (<2.0) EU/dL Ur Leukocyte Esterase TRACE (NEGATIVE) Urine RBC 1-3 (0-2/HPF) Urine WBC 8-10 (0-5/HPF) Ur Epithelial Cells FEW (NONE-FEW) Calcium Oxalate Crystal FEW (NEGATIVE) Urine Bacteria 1+ H (NEGATIVE) 07/07/17 Range/Units 19:35 WBC (4.0-11.0) K/uL RBC (4.30-5.90) M/uL Hgb (12.0-16.0) g/dL Hct (36.0-46.0) % MCV (80.0-98.0) fL MCH (27.0-32.0) pg MCHC (31.0-37.0) g/dL RDW Std Deviation (28.0-62.0) fl RDW Coeff of [place] (11.0-15.0) % Plt Count (150-400) K/uL MPV (7.40-12.00) fL Neut % (Auto) (48.0-80.0) % Lymph % (Auto) (16.0-40.0) % [place] % (Auto) (0.0-15.0) % Eos % (Auto) (0.0-7.0) % Baso % (Auto) (0.0-1.5) % Neut # (Auto) (1.4-5.7) K/uL Lymph # (Auto) (0.6-2.4) K/uL [place] # (Auto) (0.0-0.8) K/uL Eos # (Auto) (0.0-0.7) K/uL Baso # (Auto) (0.0-0.1) K/uL Nucleated RBC % /100WBC Nucleated RBCs # K/uL INR 0.99 Sodium (136-145) mmol/L Potassium (3.5-5.1) mmol/L Chloride (98-107) mmol/L Carbon Dioxide (21.0-32.0) mmol/L BUN (7.0-18.0) mg/dL Creatinine (0.6-1.0) mg/dL Est Cr Clr Drug Dosing mL/min Estimated GFR (MDRD) ml/min Glucose (74-106) mg/dL Calcium (8.5-10.1) mg/dL Total Bilirubin (0.2-1.0) mg/dL AST (15-37) IU/L ALT (14-63) IU/L Alkaline Phosphatase (46-116) U/L Troponin I (0.000-0.056) ng/mL Total Protein (6.4-8.2) g/dL Albumin (3.4-5.0) g/dL Globulin (2.0-3.5) g/dL Albumin/Globulin Ratio (1.3-2.8) Urine Color Urine Appearance Urine pH (5.0-8.0) Ur Specific [place] (1.001-1.035) Urine Protein (NEGATIVE) mg/dL Urine Glucose (UA) (NEGATIVE) mg/dL Urine Ketones (NEGATIVE) mg/dL Urine Occult Blood (NEGATIVE) Urine Nitrite (NEGATIVE) Urine Bilirubin (NEGATIVE) Urine Ictotest Urine Urobilinogen (<2.0) EU/dL Ur Leukocyte Esterase (NEGATIVE) Urine RBC (0-2/HPF) Urine WBC (0-5/HPF) Ur Epithelial Cells (NONE-FEW) Calcium Oxalate Crystal (NEGATIVE) Urine Bacteria (NEGATIVE) Result Diagrams: 07/08/17 05:48 07/08/17 05:48 Problem List Initiated/Reviewed/Updated: Yes Orders Last 24hrs: Active Orders 24 hr Category Date Time Status Patient Status [ADT] Stat ADT 07/07/17 21:17 Active EKG Documentation Completion [RC] STAT Care 07/07/17 19:18 Active Notify Provider Consults [RC] ASDIRECTED Care 07/07/17 21:53 Active Abdomen Pelvis w Cont [CT] Stat Exams 07/07/17 19:22 Taken BMP [BASIC METABOLIC PANEL,BMP] [CHEM] Routine Lab 07/08/17 05:00 Ordered CBC WITH AUTO DIFF [HEME] Routine Lab 07/08/17 05:00 Ordered UA W/MICROSCOPIC [URIN] Stat Lab 07/07/17 19:30 Ordered Levofloxacin/Dextrose 5%-Water [Levaquin in D5W 750 MG/ Med 07/08/17 22:00 Ordered 150 ML] 750 mg Premix Bag 1 bag IV Q24H Morphine Med 07/08/17 00:02 Active 2 mg IVPUSH Q3H PRN Ondansetron [Zofran] Med 07/08/17 00:05 Active 4 mg IVPUSH Q4H PRN Sodium Chloride 0.9% [Normal Saline] 500 ml Med 07/07/17 21:30 Active IV STAT Sodium Chloride 0.9% [Saline Flush] Med 07/07/17 19:18 Active 10 ml FLUSH ASDIRECTED PRN Sodium Chloride 0.9% [Saline Flush] Med 07/07/17 19:18 Active 2.5 ml FLUSH ASDIRECTED PRN Sodium Chloride 0.9% with KCl 40 mEq @ Enter Rate (1000 Med 07/08/17 02:00 Ordered mL) Sodium Chloride 0.9% with KCl [Normal Saline with 40 mEq KCl] 1,000 ml IV ASDIRECTED Saline Lock Insert [OM.PC] Stat Oth 07/07/17 19:18 Ordered Medication Orders Sodium Chloride (Normal Saline) 500 mls @ 125 mls/hr IV STAT MALDONADO Last Admin: 07/07/17 21:26 Dose: 125 mls/hr Levofloxacin/Dextrose 750 mg/ (Premix) 150 mls @ 100 mls/hr IV Q24H MALDONADO Morphine Sulfate (Morphine) 2 mg IVPUSH Q3H PRN PRN Reason: Pain Last Admin: 07/08/17 00:28 Dose: 2 mg Ondansetron HCl (Zofran) 4 mg IVPUSH Q4H PRN PRN Reason: Nausea Sodium Chloride (Saline Flush) 10 ml FLUSH ASDIRECTED PRN PRN Reason: Keep Vein Open Last Admin: 07/07/17 21:27 Dose: 10 ml Sodium Chloride (Saline Flush) 2.5 ml FLUSH ASDIRECTED PRN PRN Reason: Keep Vein Open Last Admin: 07/07/17 21:27 Dose: 2.5 ml Assessment/Plan Comment:: 82 yo female admitted with proximal colonic obstruction. Dr. Gannon has been consulted and recommends IV fluids and bowel rest. We will treat UTI with IV levaquin.
[2017-07-08 06:21] LABS: CHLORIDE,CL 106 mmol/L (98-107); SODIUM,NA 139 mmol/L (136-145)
--- NOTE | 2017-07-08 08:47 | PCM.SURGPN ---
<Contreras Wick - Last Filed: 07/08/17 08:48> - General Info Date of Service: 07/08/17 - Review of Systems Systems Review Comment:: No acute events overnight. Pain is tolerable. At times she will still have intermittent generalized abdominal pain across mid abdomen, no worse than prior. No change in right lower abdominal tenderness. She has ambulated in room and urinated on own. Denies any urinary symptoms. She is passing flatus. No bowel movement this admission. Denies fever, chills, nausea, vomiting, chest pain, or SOB. - Patient Data Vitals - Most Recent: Last Vital Signs Temp 36.8 C 07/08/17 08:35 Pulse 78 07/08/17 08:35 Resp 18 07/08/17 08:35 BP 131/56 L 07/08/17 08:35 Pulse Ox 93 L 07/08/17 08:35 Weight - Most Recent: 150 lb 4.8 oz I&O - Last 24 Hours: Intake & Output 07/07/17 07/08/17 07/08/17 22:59 06:59 14:59 Intake Total 925 Output Total 0 Balance 925 Lab Results Last 24 Hrs: Laboratory Results - last 24 hr 07/07/17 07/07/17 07/07/17 Range/Units 19:30 19:35 19:35 WBC 7.76 (4.0-11.0) K/uL RBC 4.63 (4.30-5.90) M/uL Hgb 14.0 (12.0-16.0) g/dL Hct 41.1 (36.0-46.0) % MCV 88.8 (80.0-98.0) fL MCH 30.2 (27.0-32.0) pg MCHC 34.1 (31.0-37.0) g/dL RDW Std Deviation 42.0 (28.0-62.0) fl RDW Coeff of Irma 13 (11.0-15.0) % Plt Count 158 (150-400) K/uL MPV 11.90 (7.40-12.00) fL Neut % (Auto) 62.1 (48.0-80.0) % Lymph % (Auto) 20.2 (16.0-40.0) % [place] % (Auto) 15.9 H (0.0-15.0) % Eos % (Auto) 1.7 (0.0-7.0) % Baso % (Auto) 0.1 (0.0-1.5) % Neut # (Auto) 4.8 (1.4-5.7) K/uL Lymph # (Auto) 1.6 (0.6-2.4) K/uL [place] # (Auto) 1.2 H (0.0-0.8) K/uL Eos # (Auto) 0.1 (0.0-0.7) K/uL Baso # (Auto) 0.0 (0.0-0.1) K/uL Add Manual Diff Neutrophils % (Manual) (48.0-80.0) % Band Neutrophils % % Lymphocytes % (Manual) (16.0-40.0) % Monocytes % (Manual) (0.0-15.0) % Eosinophils % (Manual) (0.0-7.0) % Nucleated RBC % 0.0 /100WBC Absolute Seg Neuts (1.4-5.7) Band Neutrophils # Lymphocytes # (Manual) (0.6-2.4) Monocytes # (Manual) (0.0-0.8) Eosinophils # (Manual) (0.0-0.7) Nucleated RBCs # 0 K/uL INR Sodium 139 (136-145) mmol/L Potassium 3.1 L (3.5-5.1) mmol/L Chloride 103 (98-107) mmol/L Carbon Dioxide 27.4 (21.0-32.0) mmol/L BUN 17 (7.0-18.0) mg/dL Creatinine 0.7 (0.6-1.0) mg/dL Est Cr Clr Drug Dosing 49.49 mL/min Estimated GFR (MDRD) > 60.0 ml/min Glucose 122 H (74-106) mg/dL Calcium 9.6 (8.5-10.1) mg/dL Total Bilirubin 0.6 (0.2-1.0) mg/dL AST 21 (15-37) IU/L ALT 17 (14-63) IU/L Alkaline Phosphatase 68 (46-116) U/L Troponin I < 0.050 (0.000-0.056) ng/mL Total Protein 7.6 (6.4-8.2) g/dL Albumin 4.0 (3.4-5.0) g/dL Globulin 3.6 H (2.0-3.5) g/dL Albumin/Globulin Ratio 1.1 L (1.3-2.8) Urine Color YELLOW Urine Appearance SLT CLOUDY Urine pH 5.5 (5.0-8.0) Ur Specific [place] >= 1.030 (1.001-1.035) Urine Protein 30 (NEGATIVE) mg/dL Urine Glucose (UA) NEGATIVE (NEGATIVE) mg/dL Urine Ketones 15 H (NEGATIVE) mg/dL Urine Occult Blood NEGATIVE (NEGATIVE) Urine Nitrite NEGATIVE (NEGATIVE) Urine Bilirubin SMALL H (NEGATIVE) Urine Ictotest NEGATIVE Urine Urobilinogen 0.2 (<2.0) EU/dL Ur Leukocyte Esterase TRACE (NEGATIVE) Urine RBC 1-3 (0-2/HPF) Urine WBC 8-10 (0-5/HPF) Ur Epithelial Cells FEW (NONE-FEW) Calcium Oxalate Crystal FEW (NEGATIVE) Urine Bacteria 1+ H (NEGATIVE) 07/07/17 07/08/17 07/08/17 Range/Units 19:35 05:48 05:48 WBC 5.12 (4.0-11.0) K/uL RBC 4.09 L (4.30-5.90) M/uL Hgb 12.3 (12.0-16.0) g/dL Hct 36.2 (36.0-46.0) % MCV 88.5 (80.0-98.0) fL MCH 30.1 (27.0-32.0) pg MCHC 34.0 (31.0-37.0) g/dL RDW Std Deviation 41.5 (28.0-62.0) fl RDW Coeff of Irma 13 (11.0-15.0) % Plt Count 155 (150-400) K/uL MPV 11.50 (7.40-12.00) fL Neut % (Auto) (48.0-80.0) % Lymph % (Auto) (16.0-40.0) % [place] % (Auto) (0.0-15.0) % Eos % (Auto) (0.0-7.0) % Baso % (Auto) (0.0-1.5) % Neut # (Auto) (1.4-5.7) K/uL Lymph # (Auto) (0.6-2.4) K/uL [place] # (Auto) (0.0-0.8) K/uL Eos # (Auto) (0.0-0.7) K/uL Baso # (Auto) (0.0-0.1) K/uL Add Manual Diff YES Neutrophils % (Manual) 56 (48.0-80.0) % Band Neutrophils % 4 % Lymphocytes % (Manual) 27 (16.0-40.0) % Monocytes % (Manual) 10 (0.0-15.0) % Eosinophils % (Manual) 3 (0.0-7.0) % Nucleated RBC % 0.0 /100WBC Absolute Seg Neuts 2.9 (1.4-5.7) Band Neutrophils # 0.2 Lymphocytes # (Manual) 1.4 (0.6-2.4) Monocytes # (Manual) 0.5 (0.0-0.8) Eosinophils # (Manual) 0.2 (0.0-0.7) Nucleated RBCs # 0 K/uL INR 0.99 Sodium 139 (136-145) mmol/L Potassium 3.5 (3.5-5.1) mmol/L Chloride 106 (98-107) mmol/L Carbon Dioxide 24.9 (21.0-32.0) mmol/L BUN 13 (7.0-18.0) mg/dL Creatinine 0.6 (0.6-1.0) mg/dL Est Cr Clr Drug Dosing 57.74 mL/min Estimated GFR (MDRD) > 60.0 ml/min Glucose 103 (74-106) mg/dL Calcium 8.6 (8.5-10.1) mg/dL Total Bilirubin (0.2-1.0) mg/dL AST (15-37) IU/L ALT (14-63) IU/L Alkaline Phosphatase (46-116) U/L Troponin I (0.000-0.056) ng/mL Total Protein (6.4-8.2) g/dL Albumin (3.4-5.0) g/dL Globulin (2.0-3.5) g/dL Albumin/Globulin Ratio (1.3-2.8) Urine Color Urine Appearance Urine pH (5.0-8.0) Ur Specific [place] (1.001-1.035) Urine Protein (NEGATIVE) mg/dL Urine Glucose (UA) (NEGATIVE) mg/dL Urine Ketones (NEGATIVE) mg/dL Urine Occult Blood (NEGATIVE) Urine Nitrite (NEGATIVE) Urine Bilirubin (NEGATIVE) Urine Ictotest Urine Urobilinogen (<2.0) EU/dL Ur Leukocyte Esterase (NEGATIVE) Urine RBC (0-2/HPF) Urine WBC (0-5/HPF) Ur Epithelial Cells (NONE-FEW) Calcium Oxalate Crystal (NEGATIVE) Urine Bacteria (NEGATIVE) Med Orders - Current: Current Medications Sodium Chloride (Normal Saline) 500 mls @ 125 mls/hr IV STAT MALDONADO Last Admin: 07/07/17 21:26 Dose: 125 mls/hr Levofloxacin/Dextrose (Levaquin In D5w 250 Mg/50 Ml) 50 mls @ 50 mls/hr IV Q24H MALDONADO Morphine Sulfate (Morphine) 2 mg IVPUSH Q3H PRN PRN Reason: Pain Last Admin: 07/08/17 00:28 Dose: 2 mg Ondansetron HCl (Zofran) 4 mg IVPUSH Q4H PRN PRN Reason: Nausea Sodium Chloride (Saline Flush) 10 ml FLUSH ASDIRECTED PRN PRN Reason: Keep Vein Open Last Admin: 07/07/17 21:27 Dose: 10 ml Sodium Chloride (Saline Flush) 2.5 ml FLUSH ASDIRECTED PRN PRN Reason: Keep Vein Open Last Admin: 07/07/17 21:27 Dose: 2.5 ml Discontinued Medications Levofloxacin/Dextrose 750 mg/ (Premix) 150 mls @ 100 mls/hr IV ONETIME ONE Stop: 07/07/17 22:48 Last Admin: 07/07/17 21:26 Dose: 100 mls/hr Sodium Chloride (Normal Saline) 500 mls @ 125 mls/hr IV ASDIRECTED MALDONADO Sodium Chloride (Normal Saline) 1,000 mls @ 125 mls/hr IV ASDIRECTED MALDONADO Last Admin: 07/08/17 01:54 Dose: 125 mls/hr Potassium Chloride/Sodium Chloride (Normal Saline With 40 Meq Kcl) 1,000 mls @ 150 mls/hr IV ASDIRECTED MALDONADO Stop: 07/08/17 08:39 Last Admin: 07/08/17 02:48 Dose: 150 mls/hr Iopamidol (Isovue Multipack-370 (76%)) 100 ml IVPUSH ONETIME STA Stop: 07/07/17 19:43 Last Admin: 07/07/17 19:44 Dose: 100 ml - Exam General: Alert, No Acute Distress Lungs: Clear to Auscultation, Normal Respiratory Effort Cardiovascular: Regular Rate GI/Abdominal Exam: Soft (Minimal distension. Generalized tenderness in midline and right lower abdomen. Palpable bulge in right groin, minimally tender. No rebound, guarding, or peritoneal signs. ) Extremities: Normal Inspection, No Pedal Edema Skin: Warm, Intact - Problem List & Annotations (1) Colonic obstruction SNOMED Code(s): 07180865 Code(s): K56.609 - UNSP INTESTNL OBST, UNSP TO PARTIAL VERSUS COMPLETE OBST Status: Acute Priority: High Current Visit: Yes - Problem List Review Problem List Initiated/Reviewed/Updated: Yes - My Orders Last 24 Hours: Active Orders 24 hr Category Date Time Status Patient Status [ADT] Stat ADT 07/07/17 21:17 Active EKG Documentation Completion [RC] STAT Care 07/07/17 19:18 Active Notify Provider Consults [RC] ASDIRECTED Care 07/07/17 21:53 Active Abdomen Pelvis w Cont [CT] Stat Exams 07/07/17 19:22 Taken UA W/MICROSCOPIC [URIN] Stat Lab 07/07/17 19:30 Ordered Levofloxacin/Dextrose 5%-Water [Levaquin in D5W 250 MG/ Med 07/08/17 21:00 Active 50 ML] 50 ml IV Q24H Morphine Med 07/08/17 00:02 Active 2 mg IVPUSH Q3H PRN Ondansetron [Zofran] Med 07/08/17 00:05 Active 4 mg IVPUSH Q4H PRN Sodium Chloride 0.9% [Normal Saline] 500 ml Med 07/07/17 21:30 Active IV STAT Sodium Chloride 0.9% [Saline Flush] Med 07/07/17 19:18 Active 10 ml FLUSH ASDIRECTED PRN Sodium Chloride 0.9% [Saline Flush] Med 07/07/17 19:18 Active 2.5 ml FLUSH ASDIRECTED PRN Saline Lock Insert [OM.PC] Stat Oth 07/07/17 19:18 Ordered Medication Orders Sodium Chloride (Normal Saline) 500 mls @ 125 mls/hr IV STAT MALDONADO Last Admin: 07/07/17 21:26 Dose: 125 mls/hr Levofloxacin/Dextrose (Levaquin In D5w 250 Mg/50 Ml) 50 mls @ 50 mls/hr IV Q24H MALDONADO Morphine Sulfate (Morphine) 2 mg IVPUSH Q3H PRN PRN Reason: Pain Last Admin: 07/08/17 00:28 Dose: 2 mg Ondansetron HCl (Zofran) 4 mg IVPUSH Q4H PRN PRN Reason: Nausea Sodium Chloride (Saline Flush) 10 ml FLUSH ASDIRECTED PRN PRN Reason: Keep Vein Open Last Admin: 07/07/17 21:27 Dose: 10 ml Sodium Chloride (Saline Flush) 2.5 ml FLUSH ASDIRECTED PRN PRN Reason: Keep Vein Open Last Admin: 07/07/17 21:27 Dose: 2.5 ml - Assessment Assessment (Free Text/Narrative):: 82 yr old female who presented 07/07/17 with a high grade distal sigmoid obstruction. Given her history concerning for neoplasm. Differential includes inflammatory(has had diverticulosis on past colonoscopy) as well as post surgical/radiation changes. She also has a right femoral hernia that has been reducible. Being treated for UTI. No acute changes overnight. Electrolytes improved. Hemodynamically stable. Abdomen remains benign with no peritoneal signs. - Plan Plan (Free Text/Narrative):: Continue IV fluids and NPO Pain meds prn Will plan for transfer to [facility] today (07/08/17) <Nick Gannon - Last Filed: 07/08/17 09:36> - Patient Data Vitals - Most Recent: Last Vital Signs Temp 98.2 F 07/08/17 08:35 Pulse 78 07/08/17 08:35 Resp 18 07/08/17 08:35 BP 131/56 L 07/08/17 08:35 Pulse Ox 93 L 07/08/17 08:35 I&O - Last 24 Hours: Intake & Output 07/07/17 07/08/17 07/08/17 19:59 03:59 11:59 Intake Total 925 Output Total 0 Balance 925 Lab Results Last 24 Hrs: Laboratory Results - last 24 hr 07/07/17 07/07/17 07/07/17 Range/Units 19:30 19:35 19:35 WBC 7.76 (4.0-11.0) K/uL RBC 4.63 (4.30-5.90) M/uL Hgb 14.0 (12.0-16.0) g/dL Hct 41.1 (36.0-46.0) % MCV 88.8 (80.0-98.0) fL MCH 30.2 (27.0-32.0) pg MCHC 34.1 (31.0-37.0) g/dL RDW Std Deviation 42.0 (28.0-62.0) fl RDW Coeff of Irma 13 (11.0-15.0) % Plt Count 158 (150-400) K/uL MPV 11.90 (7.40-12.00) fL Neut % (Auto) 62.1 (48.0-80.0) % Lymph % (Auto) 20.2 (16.0-40.0) % [place] % (Auto) 15.9 H (0.0-15.0) % Eos % (Auto) 1.7 (0.0-7.0) % Baso % (Auto) 0.1 (0.0-1.5) % Neut # (Auto) 4.8 (1.4-5.7) K/uL Lymph # (Auto) 1.6 (0.6-2.4) K/uL [place] # (Auto) 1.2 H (0.0-0.8) K/uL Eos # (Auto) 0.1 (0.0-0.7) K/uL Baso # (Auto) 0.0 (0.0-0.1) K/uL Add Manual Diff Neutrophils % (Manual) (48.0-80.0) % Band Neutrophils % % Lymphocytes % (Manual) (16.0-40.0) % Monocytes % (Manual) (0.0-15.0) % Eosinophils % (Manual) (0.0-7.0) % Nucleated RBC % 0.0 /100WBC Absolute Seg Neuts (1.4-5.7) Band Neutrophils # Lymphocytes # (Manual) (0.6-2.4) Monocytes # (Manual) (0.0-0.8) Eosinophils # (Manual) (0.0-0.7) Nucleated RBCs # 0 K/uL INR Sodium 139 (136-145) mmol/L Potassium 3.1 L (3.5-5.1) mmol/L Chloride 103 (98-107) mmol/L Carbon Dioxide 27.4 (21.0-32.0) mmol/L BUN 17 (7.0-18.0) mg/dL Creatinine 0.7 (0.6-1.0) mg/dL Est Cr Clr Drug Dosing 49.49 mL/min Estimated GFR (MDRD) > 60.0 ml/min Glucose 122 H (74-106) mg/dL Calcium 9.6 (8.5-10.1) mg/dL Total Bilirubin 0.6 (0.2-1.0) mg/dL AST 21 (15-37) IU/L ALT 17 (14-63) IU/L Alkaline Phosphatase 68 (46-116) U/L Troponin I < 0.050 (0.000-0.056) ng/mL Total Protein 7.6 (6.4-8.2) g/dL Albumin 4.0 (3.4-5.0) g/dL Globulin 3.6 H (2.0-3.5) g/dL Albumin/Globulin Ratio 1.1 L (1.3-2.8) Urine Color YELLOW Urine Appearance SLT CLOUDY Urine pH 5.5 (5.0-8.0) Ur Specific [place] >= 1.030 (1.001-1.035) Urine Protein 30 (NEGATIVE) mg/dL Urine Glucose (UA) NEGATIVE (NEGATIVE) mg/dL Urine Ketones 15 H (NEGATIVE) mg/dL Urine Occult Blood NEGATIVE (NEGATIVE) Urine Nitrite NEGATIVE (NEGATIVE) Urine Bilirubin SMALL H (NEGATIVE) Urine Ictotest NEGATIVE Urine Urobilinogen 0.2 (<2.0) EU/dL Ur Leukocyte Esterase TRACE (NEGATIVE) Urine RBC 1-3 (0-2/HPF) Urine WBC 8-10 (0-5/HPF) Ur Epithelial Cells FEW (NONE-FEW) Calcium Oxalate Crystal FEW (NEGATIVE) Urine Bacteria 1+ H (NEGATIVE) 07/07/17 07/08/17 07/08/17 Range/Units 19:35 05:48 05:48 WBC 5.12 (4.0-11.0) K/uL RBC 4.09 L (4.30-5.90) M/uL Hgb 12.3 (12.0-16.0) g/dL Hct 36.2 (36.0-46.0) % MCV 88.5 (80.0-98.0) fL MCH 30.1 (27.0-32.0) pg MCHC 34.0 (31.0-37.0) g/dL RDW Std Deviation 41.5 (28.0-62.0) fl RDW Coeff of [place]ma 13 (11.0-15.0) % Plt Count 155 (150-400) K/uL MPV 11.50 (7.40-12.00) fL Neut % (Auto) (48.0-80.0) % Lymph % (Auto) (16.0-40.0) % [place] % (Auto) (0.0-15.0) % Eos % (Auto) (0.0-7.0) % Baso % (Auto) (0.0-1.5) % Neut # (Auto) (1.4-5.7) K/uL Lymph # (Auto) (0.6-2.4) K/uL [place] # (Auto) (0.0-0.8) K/uL Eos # (Auto) (0.0-0.7) K/uL Baso # (Auto) (0.0-0.1) K/uL Add Manual Diff YES Neutrophils % (Manual) 56 (48.0-80.0) % Band Neutrophils % 4 % Lymphocytes % (Manual) 27 (16.0-40.0) % Monocytes % (Manual) 10 (0.0-15.0) % Eosinophils % (Manual) 3 (0.0-7.0) % Nucleated RBC % 0.0 /100WBC Absolute Seg Neuts 2.9 (1.4-5.7) Band Neutrophils # 0.2 Lymphocytes # (Manual) 1.4 (0.6-2.4) Monocytes # (Manual) 0.5 (0.0-0.8) Eosinophils # (Manual) 0.2 (0.0-0.7) Nucleated RBCs # 0 K/uL INR 0.99 Sodium 139 (136-145) mmol/L Potassium 3.5 (3.5-5.1) mmol/L Chloride 106 (98-107) mmol/L Carbon Dioxide 24.9 (21.0-32.0) mmol/L BUN 13 (7.0-18.0) mg/dL Creatinine 0.6 (0.6-1.0) mg/dL Est Cr Clr Drug Dosing 57.74 mL/min Estimated GFR (MDRD) > 60.0 ml/min Glucose 103 (74-106) mg/dL Calcium 8.6 (8.5-10.1) mg/dL Total Bilirubin (0.2-1.0) mg/dL AST (15-37) IU/L ALT (14-63) IU/L Alkaline Phosphatase (46-116) U/L Troponin I (0.000-0.056) ng/mL Total Protein (6.4-8.2) g/dL Albumin (3.4-5.0) g/dL Globulin (2.0-3.5) g/dL Albumin/Globulin Ratio (1.3-2.8) Urine Color Urine Appearance Urine pH (5.0-8.0) Ur Specific [place] (1.001-1.035) Urine Protein (NEGATIVE) mg/dL Urine Glucose (UA) (NEGATIVE) mg/dL Urine Ketones (NEGATIVE) mg/dL Urine Occult Blood (NEGATIVE) Urine Nitrite (NEGATIVE) Urine Bilirubin (NEGATIVE) Urine Ictotest Urine Urobilinogen (<2.0) EU/dL Ur Leukocyte Esterase (NEGATIVE) Urine RBC (0-2/HPF) Urine WBC (0-5/HPF) Ur Epithelial Cells (NONE-FEW) Calcium Oxalate Crystal (NEGATIVE) Urine Bacteria (NEGATIVE) Med Orders - Current: Current Medications Sodium Chloride (Normal Saline) 500 mls @ 125 mls/hr IV STAT MALDONADO Last Admin: 07/07/17 21:26 Dose: 125 mls/hr Levofloxacin/Dextrose (Levaquin In D5w 250 Mg/50 Ml) 50 mls @ 50 mls/hr IV Q24H MALDONADO Morphine Sulfate (Morphine) 2 mg IVPUSH Q3H PRN PRN Reason: Pain Last Admin: 07/08/17 00:28 Dose: 2 mg Ondansetron HCl (Zofran) 4 mg IVPUSH Q4H PRN PRN Reason: Nausea Sodium Chloride (Saline Flush) 10 ml FLUSH ASDIRECTED PRN PRN Reason: Keep Vein Open Last Admin: 07/07/17 21:27 Dose: 10 ml Sodium Chloride (Saline Flush) 2.5 ml FLUSH ASDIRECTED PRN PRN Reason: Keep Vein Open Last Admin: 07/07/17 21:27 Dose: 2.5 ml Discontinued Medications Levofloxacin/Dextrose 750 mg/ (Premix) 150 mls @ 100 mls/hr IV ONETIME ONE Stop: 07/07/17 22:48 Last Admin: 07/07/17 21:26 Dose: 100 mls/hr Sodium Chloride (Normal Saline) 500 mls @ 125 mls/hr IV ASDIRECTED MALDONADO Sodium Chloride (Normal Saline) 1,000 mls @ 125 mls/hr IV ASDIRECTED MALDONADO Last Admin: 07/08/17 01:54 Dose: 125 mls/hr Potassium Chloride/Sodium Chloride (Normal Saline With 40 Meq Kcl) 1,000 mls @ 150 mls/hr IV ASDIRECTED MALDONADO Stop: 07/08/17 08:39 Last Admin: 07/08/17 02:48 Dose: 150 mls/hr Iopamidol (Isovue Multipack-370 (76%)) 100 ml IVPUSH ONETIME STA Stop: 07/07/17 19:43 Last Admin: 07/07/17 19:44 Dose: 100 ml - Problem List & Annotations (1) Endometrial cancer SNOMED Code(s): 879848957 Code(s): C54.1 - MALIGNANT NEOPLASM OF ENDOMETRIUM Status: Acute Priority : Low Current Visit: Yes (2) S/P radiation therapy greater than twelve weeks ago SNOMED Code(s): 913019706 Code(s): Z92.3 - PERSONAL HISTORY OF IRRADIATION Status: Acute Priority: Low Current Visit: Yes (3) Colonic obstruction SNOMED Code(s): 38184730 Code(s): K56.609 - UNSP INTESTNL OBST, UNSP TO PARTIAL VERSUS COMPLETE OBST Status: Acute Priority: High Current Visit: Yes (4) Femoral hernia of right side SNOMED Code(s): 25306592 Code(s): K41.90 - UNIL FEMORAL HERNIA, W/O OBST OR GANGRENE, NOT SPCF RECUR Status: Acute Priority: High Current Visit: Yes (5) UTI (urinary tract infection) SNOMED Code(s): 98285547 Code(s): N39.0 - URINARY TRACT INFECTION, SITE NOT SPECIFIED Status: Acute Priority: Low Current Visit: Yes Qualifiers: Urinary tract infection type: acute cystitis Hematuria presence: without hematuria Qualified Code(s): N30.00 - Acute cystitis without hematuria (6) Invasive ductal carcinoma of breast, female SNOMED Code(s): 145473649 Code(s): C50.919 - MALIGNANT NEOPLASM OF UNSP SITE OF UNSPECIFIED FEMALE BREAST Status: Acute Priority: Low Current Visit: No Qualifiers: Laterality: right Qualified Code(s): C50.911 - Malignant neoplasm of unspecified site of right female breast - My Orders Last 24 Hours: Active Orders 24 hr Category Date Time Status Patient Status [ADT] Stat ADT 07/07/17 21:17 Active EKG Documentation Completion [RC] STAT Care 07/07/17 19:18 Active Notify Provider Consults [RC] ASDIRECTED Care 07/07/17 21:53 Active Abdomen Pelvis w Cont [CT] Stat Exams 07/07/17 19:22 Taken UA W/MICROSCOPIC [URIN] Stat Lab 07/07/17 19:30 Ordered Levofloxacin/Dextrose 5%-Water [Levaquin in D5W 250 MG/ Med 07/08/17 21:00 Active 50 ML] 50 ml IV Q24H Morphine Med 07/08/17 00:02 Active 2 mg IVPUSH Q3H PRN Ondansetron [Zofran] Med 07/08/17 00:05 Active 4 mg IVPUSH Q4H PRN Sodium Chloride 0.9% [Normal Saline] 500 ml Med 07/07/17 21:30 Active IV STAT Sodium Chloride 0.9% [Saline Flush] Med 07/07/17 19:18 Active 10 ml FLUSH ASDIRECTED PRN Sodium Chloride 0.9% [Saline Flush] Med 07/07/17 19:18 Active 2.5 ml FLUSH ASDIRECTED PRN Saline Lock Insert [OM.PC] Stat Oth 07/07/17 19:18 Ordered Medication Orders Sodium Chloride (Normal Saline) 500 mls @ 125 mls/hr IV STAT MALDONADO Last Admin: 07/07/17 21:26 Dose: 125 mls/hr Levofloxacin/Dextrose (Levaquin In D5w 250 Mg/50 Ml) 50 mls @ 50 mls/hr IV Q24H MALDONADO Morphine Sulfate (Morphine) 2 mg IVPUSH Q3H PRN PRN Reason: Pain Last Admin: 07/08/17 00:28 Dose: 2 mg Ondansetron HCl (Zofran) 4 mg IVPUSH Q4H PRN PRN Reason: Nausea Sodium Chloride (Saline Flush) 10 ml FLUSH ASDIRECTED PRN PRN Reason: Keep Vein Open Last Admin: 07/07/17 21:27 Dose: 10 ml Sodium Chloride (Saline Flush) 2.5 ml FLUSH ASDIRECTED PRN PRN Reason: Keep Vein Open Last Admin: 07/07/17 21:27 Dose: 2.5 ml - Plan Plan (Free Text/Narrative):: Patient see and independently examined. Currently rates her pain "3-4". + flatus but no BM. States she feels less distended. IMPRESSION: High grade distal large bowel obstruction. Right femoral hernia. RECOMMENDATIONS: Continue to recommend transfer to [place] for higher level of care. She may still be a candidate for temporary colonic stenting to bowel prep her prior to colon resection and repair of the right femoral hernia.
[2017-07-08] MEDS ORDERED: Morphine 4 MG/ML Syringe IVPUSH PRN (09:45)
[2017-07-08] MEDS: Sodium Chloride 0.9% 500 ML IV SCH (13:56)
--- NOTE | 2017-07-08 14:54 | PCM.DCSUM1 ---
Discharge Summary - Discharge Data Discharge Date: 07/08/17 Discharge Disposition: DC/Tfer to Acute Hospital 02 Condition: Good - Patient Summary/Data Hospital Course: 82 yo female with pmh of breast and endometrial cancer who was admitted for colonic obstruction. She presented to the ED last night with complaints of lower abdominal pain. She reports intermittent abdominal pain, nausea and diarrhea for past four weeks. She was found to have a focal region of concentric wall thickening in the distal descending colon that causes proximal colonic obstruction. Dr. Gannon was consulted on admission and recommended bowel rest and IV fluids. Patient was given Levaquin for UTI. This morning patient is relatively asymptomatic. I spoke with Dr. Gannon today and he has recommended transfer to [facility]. I have contacted Dr. Caballero who has accepted the patient. Ground transportation is being arranged. - Patient Instructions Diet: NPO - Discharge Plan Home Medications: Home Meds Anastrozole [Arimidex] 1 mg PO DAILY 07/07/17 [History] Ibandronate Sodium 150 mg PO 07/07/17 [History] Pregabalin [Lyrica] 100 mg PO DAILY 07/07/17 [History] Forms: ED Department Discharge Referrals: Asad Johnson MD [Primary Care Provider] - - Patient Data Vitals - Most Recent: Last Vital Signs Temp 36.8 C 07/08/17 11:53 Pulse 83 07/08/17 11:53 Resp 18 07/08/17 11:53 BP 130/64 07/08/17 11:53 Pulse Ox 93 L 07/08/17 11:53 Weight - Most Recent: 68.175 kg I&O - Last 24 hours: Intake & Output 07/07/17 07/08/17 07/08/17 22:59 06:59 14:59 Intake Total 925 Output Total 0 Balance 925 Lab Results - Last 24 hrs: Laboratory Results - last 24 hr 07/07/17 07/07/17 07/07/17 Range/Units 19:30 19:35 19:35 WBC 7.76 (4.0-11.0) K/uL RBC 4.63 (4.30-5.90) M/uL Hgb 14.0 (12.0-16.0) g/dL Hct 41.1 (36.0-46.0) % MCV 88.8 (80.0-98.0) fL MCH 30.2 (27.0-32.0) pg MCHC 34.1 (31.0-37.0) g/dL RDW Std Deviation 42.0 (28.0-62.0) fl RDW Coeff of Irma 13 (11.0-15.0) % Plt Count 158 (150-400) K/uL MPV 11.90 (7.40-12.00) fL Neut % (Auto) 62.1 (48.0-80.0) % Lymph % (Auto) 20.2 (16.0-40.0) % [place] % (Auto) 15.9 H (0.0-15.0) % Eos % (Auto) 1.7 (0.0-7.0) % Baso % (Auto) 0.1 (0.0-1.5) % Neut # (Auto) 4.8 (1.4-5.7) K/uL Lymph # (Auto) 1.6 (0.6-2.4) K/uL [place] # (Auto) 1.2 H (0.0-0.8) K/uL Eos # (Auto) 0.1 (0.0-0.7) K/uL Baso # (Auto) 0.0 (0.0-0.1) K/uL Add Manual Diff Neutrophils % (Manual) (48.0-80.0) % Band Neutrophils % % Lymphocytes % (Manual) (16.0-40.0) % Monocytes % (Manual) (0.0-15.0) % Eosinophils % (Manual) (0.0-7.0) % Nucleated RBC % 0.0 /100WBC Absolute Seg Neuts (1.4-5.7) Band Neutrophils # Lymphocytes # (Manual) (0.6-2.4) Monocytes # (Manual) (0.0-0.8) Eosinophils # (Manual) (0.0-0.7) Nucleated RBCs # 0 K/uL INR Sodium 139 (136-145) mmol/L Potassium 3.1 L (3.5-5.1) mmol/L Chloride 103 (98-107) mmol/L Carbon Dioxide 27.4 (21.0-32.0) mmol/L BUN 17 (7.0-18.0) mg/dL Creatinine 0.7 (0.6-1.0) mg/dL Est Cr Clr Drug Dosing 49.49 mL/min Estimated GFR (MDRD) > 60.0 ml/min Glucose 122 H (74-106) mg/dL Calcium 9.6 (8.5-10.1) mg/dL Total Bilirubin 0.6 (0.2-1.0) mg/dL AST 21 (15-37) IU/L ALT 17 (14-63) IU/L Alkaline Phosphatase 68 (46-116) U/L Troponin I < 0.050 (0.000-0.056) ng/mL Total Protein 7.6 (6.4-8.2) g/dL Albumin 4.0 (3.4-5.0) g/dL Globulin 3.6 H (2.0-3.5) g/dL Albumin/Globulin Ratio 1.1 L (1.3-2.8) Urine Color YELLOW Urine Appearance SLT CLOUDY Urine pH 5.5 (5.0-8.0) Ur Specific [place] >= 1.030 (1.001-1.035) Urine Protein 30 (NEGATIVE) mg/dL Urine Glucose (UA) NEGATIVE (NEGATIVE) mg/dL Urine Ketones 15 H (NEGATIVE) mg/dL Urine Occult Blood NEGATIVE (NEGATIVE) Urine Nitrite NEGATIVE (NEGATIVE) Urine Bilirubin SMALL H (NEGATIVE) Urine Ictotest NEGATIVE Urine Urobilinogen 0.2 (<2.0) EU/dL Ur Leukocyte Esterase TRACE (NEGATIVE) Urine RBC 1-3 (0-2/HPF) Urine WBC 8-10 (0-5/HPF) Ur Epithelial Cells FEW (NONE-FEW) Calcium Oxalate Crystal FEW (NEGATIVE) Urine Bacteria 1+ H (NEGATIVE) 07/07/17 07/08/17 07/08/17 Range/Units 19:35 05:48 05:48 WBC 5.12 (4.0-11.0) K/uL RBC 4.09 L (4.30-5.90) M/uL Hgb 12.3 (12.0-16.0) g/dL Hct 36.2 (36.0-46.0) % MCV 88.5 (80.0-98.0) fL MCH 30.1 (27.0-32.0) pg MCHC 34.0 (31.0-37.0) g/dL RDW Std Deviation 41.5 (28.0-62.0) fl RDW Coeff of Irma 13 (11.0-15.0) % Plt Count 155 (150-400) K/uL MPV 11.50 (7.40-12.00) fL Neut % (Auto) (48.0-80.0) % Lymph % (Auto) (16.0-40.0) % [place] % (Auto) (0.0-15.0) % Eos % (Auto) (0.0-7.0) % Baso % (Auto) (0.0-1.5) % Neut # (Auto) (1.4-5.7) K/uL Lymph # (Auto) (0.6-2.4) K/uL [place] # (Auto) (0.0-0.8) K/uL Eos # (Auto) (0.0-0.7) K/uL Baso # (Auto) (0.0-0.1) K/uL Add Manual Diff YES Neutrophils % (Manual) 56 (48.0-80.0) % Band Neutrophils % 4 % Lymphocytes % (Manual) 27 (16.0-40.0) % Monocytes % (Manual) 10 (0.0-15.0) % Eosinophils % (Manual) 3 (0.0-7.0) % Nucleated RBC % 0.0 /100WBC Absolute Seg Neuts 2.9 (1.4-5.7) Band Neutrophils # 0.2 Lymphocytes # (Manual) 1.4 (0.6-2.4) Monocytes # (Manual) 0.5 (0.0-0.8) Eosinophils # (Manual) 0.2 (0.0-0.7) Nucleated RBCs # 0 K/uL INR 0.99 Sodium 139 (136-145) mmol/L Potassium 3.5 (3.5-5.1) mmol/L Chloride 106 (98-107) mmol/L Carbon Dioxide 24.9 (21.0-32.0) mmol/L BUN 13 (7.0-18.0) mg/dL Creatinine 0.6 (0.6-1.0) mg/dL Est Cr Clr Drug Dosing 57.74 mL/min Estimated GFR (MDRD) > 60.0 ml/min Glucose 103 (74-106) mg/dL Calcium 8.6 (8.5-10.1) mg/dL Total Bilirubin (0.2-1.0) mg/dL AST (15-37) IU/L ALT (14-63) IU/L Alkaline Phosphatase (46-116) U/L Troponin I (0.000-0.056) ng/mL Total Protein (6.4-8.2) g/dL Albumin (3.4-5.0) g/dL Globulin (2.0-3.5) g/dL Albumin/Globulin Ratio (1.3-2.8) Urine Color Urine Appearance Urine pH (5.0-8.0) Ur Specific [place] (1.001-1.035) Urine Protein (NEGATIVE) mg/dL Urine Glucose (UA) (NEGATIVE) mg/dL Urine Ketones (NEGATIVE) mg/dL Urine Occult Blood (NEGATIVE) Urine Nitrite (NEGATIVE) Urine Bilirubin (NEGATIVE) Urine Ictotest Urine Urobilinogen (<2.0) EU/dL Ur Leukocyte Esterase (NEGATIVE) Urine RBC (0-2/HPF) Urine WBC (0-5/HPF) Ur Epithelial Cells (NONE-FEW) Calcium Oxalate Crystal (NEGATIVE) Urine Bacteria (NEGATIVE) Med Orders - Current: Current Medications Sodium Chloride (Normal Saline) 500 mls @ 125 mls/hr IV STAT MALDONADO Last Admin: 07/08/17 13:56 Dose: 125 mls/hr Levofloxacin/Dextrose (Levaquin In D5w 250 Mg/50 Ml) 50 mls @ 50 mls/hr IV Q24H MALDONADO Morphine Sulfate (Morphine) 2 mg IVPUSH Q3H PRN PRN Reason: Pain Ondansetron HCl (Zofran) 4 mg IVPUSH Q4H PRN PRN Reason: Nausea Sodium Chloride (Saline Flush) 10 ml FLUSH ASDIRECTED PRN PRN Reason: Keep Vein Open Last Admin: 07/07/17 21:27 Dose: 10 ml Sodium Chloride (Saline Flush) 2.5 ml FLUSH ASDIRECTED PRN PRN Reason: Keep Vein Open Last Admin: 07/07/17 21:27 Dose: 2.5 ml Discontinued Medications Levofloxacin/Dextrose 750 mg/ (Premix) 150 mls @ 100 mls/hr IV ONETIME ONE Stop: 07/07/17 22:48 Last Admin: 04/28/18 21:26 Dose: 100 mls/hr Sodium Chloride (Normal Saline) 500 mls @ 125 mls/hr IV ASDIRECTED MALDONADO Sodium Chloride (Normal Saline) 1,000 mls @ 125 mls/hr IV ASDIRECTED MALDONADO Last Admin: 07/08/17 01:54 Dose: 125 mls/hr Potassium Chloride/Sodium Chloride (Normal Saline With 40 Meq Kcl) 1,000 mls @ 150 mls/hr IV ASDIRECTED MALDONADO Stop: 07/08/17 08:39 Last Admin: 07/08/17 02:48 Dose: 150 mls/hr Iopamidol (Isovue Multipack-370 (76%)) 100 ml IVPUSH ONETIME STA Stop: 07/07/17 19:43 Last Admin: 07/07/17 19:44 Dose: 100 ml Morphine Sulfate (Morphine) 2 mg IVPUSH Q3H PRN PRN Reason: Pain Last Admin: 07/08/17 00:28 Dose: 2 mg
[2017-07-08] MEDS ORDERED: Levofloxacin/Dextrose 5%-Water 50 ML IV SCH (21:00)
[2017-07-08 21:12] VITALS: BP 151/67
[2017-07-08] MEDS ORDERED: Levofloxacin/Dextrose 5%-Water 750 MG in Premix Bag 1 BAG IV SCH (22:00)
--- NOTE | 2017-07-09 14:52 | CT ---
EXAM DATE: 07/07/17 PATIENT'S AGE: 82 Patient: CONNIE TERAN Facility: [place], [place] Site . Site : [id number] Study: CT Abdomen/Pelvis [id number]/28/2018 8:47:01 PM Ordering Physician: Doctor Phelps Final Report: INDICATION: Right lower quadrant abdominal pain, new lump TECHNIQUE: CT Abdomen and pelvis with i.v. contrast. Coronal and sagittal reformats were obtained. A metallic marker was placed over the palpable lump. CONTRAST: Intravenous COMPARISON: None FINDINGS: Lower chest: Unremarkable. Small fat containing left diaphragmatic hernias are noted. Liver: Unremarkable. Spleen: Unremarkable. Pancreas: Unremarkable. Gallbladder: Unremarkable. Kidney: Unremarkable. No kidney or ureteral stones or obstruction seen. Adrenal: Unremarkable. Bowel: Small sliding type esophageal hiatal hernia (type I) is present. There is a focal region of concentric wall thickening in the distal descending colon seen on coronal image 39 that causes severe proximal colonic obstruction. Moderate sigmoid diverticulosis is noted. The appendix is normal in appearance and size. A right femoral hernia is present and contains a small amount of ascites and fat. Vascular: Unremarkable. Lymph: Unremarkable. Peritoneum: Unremarkable. No pneumoperitoneum is seen. A small amount of pelvic ascites is present. Pelvis: The patient is status post prior hysterectomy. Soft tissue: Unremarkable. Bone: See above. IMPRESSIONS: 1. There is a focal region of concentric wall thickening in the distal descending colon seen on coronal image 39 that causes severe proximal colonic obstruction. Evaluation with endoscopy is recommended to exclude an annular colonic adenocarcinoma. 2. A right femoral hernia is present and contains a small amount of ascites and fat. This corresponds to the palpable abnormality in the right lower quadrant. Dictated by Mickey Barone MD @ 07/07/2017 9:04:21 PM Please note that all CT scans at this facility use dose modulation, iterative reconstruction, and/or weight-based dosing when appropriate to reduce radiation dose to as low as reasonably achievable. Dictated by: Mickey Barone MD @ 07/07/2017 21:04:26 (Electronic Signature) Report Signed by Proxy. [facility]ALTHShane
== END 2017-07-08 16:30 | DRG 389 ==
LOC: MW.ED 18:48 → MW.MS 21:17
PROVIDERS: ADMIT Internal Medicine; ATTEND Internal Medicine
DX: K56.609 Unspecified intestinal obstruction, unspecified as to partial versus complete obstruction (principal); N30.00 Acute cystitis without hematuria; K41.90 Unilateral femoral hernia, without obstruction or gangrene, not specified as recurrent; Z88.2 Allergy status to sulfonamides; Z79.899 Other long term (current) drug therapy; Z85.3 Personal history of malignant neoplasm of breast; Z85.89 Personal history of malignant neoplasm of other organs and systems; Z87.891 Personal history of nicotine dependence; K57.30 Diverticulosis of large intestine without perforation or abscess without bleeding; Z92.3 Personal history of irradiation
CPT/HCPCS: 36415; 74177; 80053; 81001; 84484; 85025; 85610; 93005; 99285; Q9967; 80048; 96365; 99283; J1956; J2270; J3480; J7040

== ENCOUNTER 2018-08-29 11:59 | Day surgery (SDC) | payer MEDICARE, BC ==
[~2018-08-29 11:59] MED LIST: Lactated Ringers 1,000 ML IV SCH; Sodium Chloride 0.9% 10 ML SDV IV PRN; Sodium Chloride 0.9% 10 ML Syringe FLUSH PRN; Sodium Chloride 0.9% 2.5 ML Syringe FLUSH PRN
[2018-08-29] MEDS ORDERED: Propofol 200 MG/20 ML SDV ONE (13:21)
--- NOTE | 2018-08-29 13:43 | PCM.PREANE ---
Preanesthetic Assessment - Anesthesia/Transfusion/Family Hx Anesthesia History: Prior Anesthesia Without Reaction Family History of Anesthesia Reaction: No Transfusion History: No Prior Transfusion(s) - Review of Systems General: No Symptoms Pulmonary: No Symptoms Cardiovascular: No Symptoms Gastrointestinal: No Symptoms Neurological: No Symptoms Other: Reports: None - Physical Assessment O2 Sat by Pulse Oximetry: 100 Respiratory Rate: 16 Vital Signs: Last Vital Signs Temp 97.5 F 08/29/18 13:15 Pulse 79 08/29/18 13:15 Resp 16 08/29/18 13:15 BP 163/78 H 08/29/18 13:15 Pulse Ox 100 08/29/18 13:15 Height: 5 ft 4 in Weight: 68.492 kg ASA Class: 2 Mental Status: Alert & Oriented x3 Dentition: Reports: Normal Dentition ROM/Head Extension: Full Lungs: Clear to Auscultation, Normal Respiratory Effort - Allergies Allergies/Adverse Reactions: Allergies Allergy/AdvReac Type Severity Reaction Status Date / Time Sulfa (Sulfonamide Allergy Nausea and Verified 08/23/18 14:37 Antibiotics) Vomiting - Blood Blood Available: No - Anesthesia Plan Pre-Op Medication Ordered: None - Acknowledgements Anesthesia Type Planned: General Anesthesia Pt an Appropriate Candidate for the Planned Anesthesia: Yes Alternatives and Risks of Anesthesia Discussed w Pt/Guardian: Yes Pt/Guardian Understands and Agrees with Anesthesia Plan: Yes PreAnesthesia Questionnaire HEENT History: Reports: Cataract, Macular Degeneration, Other (See Below) Other HEENT History: 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: Other OB/BYN History: JUAN w/BSO Musculoskeletal History: Reports: Osteoporosis Neurological History: Reports: Vertigo Oncologic (Cancer) History: Reports: Breast, Colon, Uterine Other Oncologic History: hx of endometrial cancer - Infectious Disease History Infectious Disease History: Reports: Chicken Pox, Measles, Mumps, Shingles - Past Surgical History Head Surgeries/Procedures: Reports: None HEENT Surgical History: Reports: Cataract Surgery GI Surgical History: Reports: Colon Other GI Surgeries/Procedures: hx of left hemicolectomy Female Surgical History: Reports: Breast Biopsy, Hysterectomy, Salpingo- Oophorectomy Other Female Surgeries/Procedures: right breast lumpectomy with lymph node removal Musculoskeletal Surgical History: Reports: Shoulder Surgery Other Musculoskeletal Surgeries/Procedures:: right shouloder ligament repair Oncologic Surgical History: Reports: Lumpectomy Other Oncologic Surgeries/Procedures: Hysterectomy, colon resection - SUBSTANCE USE Smoking Status *Q: Former Smoker Tobacco Use Within Last Twelve Months: No Recreational Drug Use History: No - HOME MEDS Home Medications: Home Meds Anastrozole [Arimidex] 1 mg PO DAILY 07/07/17 [History] Ibandronate Sodium 150 mg PO ASDIRECTED 07/07/17 [History] - CURRENT (IN HOUSE) MEDS Current Meds: Current Medications Lactated Ringer's (Ringers, Lactated) 1,000 mls @ 125 mls/hr IV ASDIRECTED [facility] Last Admin: 08/29/18 13:40 Dose: 125 mls/hr Sodium Chloride (Saline Flush) 10 ml FLUSH ASDIRECTED PRN PRN Reason: Keep Vein Open Sodium Chloride (Saline Flush) 2.5 ml FLUSH ASDIRECTED PRN PRN Reason: Keep Vein Open Sodium Chloride (Saline Flush) 10 ml FLUSH ASDIRECTED PRN PRN Reason: Keep Vein Open Sodium Chloride (Saline Flush) 2.5 ml FLUSH ASDIRECTED PRN PRN Reason: Keep Vein Open Sodium Chloride (Normal Saline) 10 ml IV ASDIRECTED PRN PRN Reason: IV Use Discontinued Medications Lidocaine HCl (Xylocaine-Mpf 1%) Confirm Administered Dose 5 mls @ as directed .ROUTE .STK-MED ONE Stop: 08/29/18 13:21 Propofol (Diprivan 20 Ml) Confirm Administered Dose 400 mg .ROUTE .STK-MED ONE Stop: 08/29/18 13:22
--- NOTE | 2018-08-29 14:40 | PCM.POSTAN ---
POST ANESTHESIA ASSESSMENT - MENTAL STATUS Mental Status: Alert, Oriented - RESPIRATORY Respiratory Status: Respiratory Rate WNL, Airway Patent, O2 Saturation Stable - CARDIOVASCULAR CV Status: Pulse Rate WNL, Blood Pressure Stable - GASTROINTESTINAL GI Status: No Symptoms - POST OP HYDRATION Hydration Status: Adequate & Stable
--- NOTE | 2018-08-29 14:40 | PCM48HPAN ---
Post Anesthesia Note - EVALUATION WITHIN 48HRS OF ANESTHETIC Vital Signs in Normal Range: Yes Patient Participated in Evaluation: Yes Respiratory Function Stable: Yes Airway Patent: Yes Cardiovascular Function Stable: Yes Hydration Status Stable: Yes Pain Control Satisfactory: Yes Nausea and Vomiting Control Satisfactory: Yes Mental Status Recovered: Yes Resp Rate: 16
--- NOTE | 2018-08-29 15:15 | PCM.OPNOTE ---
- General Post-Op/Procedure Note Date of Surgery/Procedure: 08/29/18 Operative Procedure(s): Screening colonoscopy Findings: Cecal polyp, ascending colon polyp taken in piecemeal fashion, 2 transverse colon polyps removed with hot snare, one biopsy of transverse polyp, 2 rectal polyps, large amount of hyperplastic polyps Pre Op Diagnosis: History of colon cancer Post-Op Diagnosis: Cecal polyp, ascending colon polyp, transverse colon polyp, rectal polyp transverse colon biopsy, hyperplastic polyps Anesthesia Technique: [facility] [place] Primary Surgeon: Ny Vega Condition: Good
[2018-08-29 15:40] VITALS: BP 140/57
--- NOTE | 2018-08-30 15:09 | OR ---
SURGEON: NY VEGA MD DATE OF PROCEDURE: 08/29/2018 PREOPERATIVE DIAGNOSIS: History of colon cancer. POSTOPERATIVE DIAGNOSES: 1. Diverticulosis. 2. Cecal polyp x1. 3. Ascending colon polyp x1. 4. Transverse colon polyp x2. 5. Transverse colon polyp biopsy. 6. Rectal polyps x2. 7. Hyperplastic polyps of the colon. PROCEDURE PERFORMED: Diagnostic colonoscopy. ENDOSCOPIST: Ny Vega MD ANESTHESIA: MAC. INSTRUMENT USED: Olympus colonoscope. EXTENT OF EXAM: To the cecum. PREPARATION: Good. LIMITATIONS: None. INDICATION FOR EXAMINATION: The patient is an 83-year-old female who has a history of an obstructing colonic mass. She underwent this with a left hemicolectomy. She is here for followup colonoscopy. The patient and I discussed the procedure, expected perioperative course, and risks including bleeding, infection, or damage to surrounding structures including perforation. The patient verbalized understanding and wishes to proceed. PROCEDURE IN DETAIL: The patient was brought in to the endoscopy suite and placed in the left lateral decubitus position. A time-out was completed verifying the patient's name, age, date of , allergies, and procedure to be performed. Monitored anesthesia care was induced and continuous oxygen was provided via nasal cannula throughout the procedure. After adequate sedation was achieved, a digital rectal exam was performed. This exam was within normal limits. A well lubricated colonoscope was inserted in the rectum and advanced under direct visualization to the level of the cecum. The cecum was identified by both visual and anatomic landmarks. A photograph taken in the cecal cap, however I was unable to retroflex the scope within the cecum due to looping of the scope more proximally. The scope was then fully withdrawn while examining the color, texture, anatomy, and integrity mucosa from the cecum to the anal canal. The patient had diverticulosis throughout the sigmoid colon. Her anastomosis was at approximately 15 cm from the anus. In the cecal cap, she had one small sessile polyp. This was removed in piecemeal fashion using a cold biopsy forceps. In the midportion of the ascending colon, she had a very sessile polyp along one of the folds of the haustra. This was removed in piecemeal fashion using a cold biopsy forceps. Once I reached the transverse colon, I noticed two large pedunculated polyps. These were removed using a hot snare and sent to Pathology labeled as transverse colon polyp #1, and transverse colon polyp #2. In the midportion of the transverse colon, there was a flat area that I was unsure of whether it was a polyp or just normal colonic mucosa. A biopsy of this was taken. This was at 30 cm. Once the scope was brought into the rectum, I noticed two rectal polyps. These were removed in piecemeal fashion using a cold biopsy forceps. The patient had a large amount of hyperplastic appearing polyps and any one of the polyps that I took previously could have been hyperplastic as well. I removed all of the polyps, which appeared larger or irregular based on narrow band imaging. The scope was then retroflexed within the rectum and I visualized the opening of the anal canal. This appeared normal and a photograph was taken. The scope was straightened out and fully withdrawn. The cecum to anus time was greater than 20 minutes. The patient tolerated procedure well and was taken to PACU in stable condition. ENDOSCOPIC DIAGNOSES: 1. Diverticulosis. 2. Cecal polyp x1. 3. Ascending colon polyp x1. 4. Transverse colon polyp x2. 5. Transverse colon polyp biopsy. 6. Rectal polyps x2. 7. Hyperplastic polyps of the colon. RECOMMENDATIONS: Follow up in clinic in 2 weeks. If any of the polyps come back as containing atypical features, we may do a short interval colonoscopy to ensure that I removed all of the polyp material and that no further tissue was missed. IRIS NORTH /[id number]
== END 2018-08-29 15:59 | disposition home or self-care (01) ==
LOC: MW.SDS 11:59
PROVIDERS: ATTEND Surgery
DX: Z12.11 Encounter for screening for malignant neoplasm of colon (principal); D12.3 Benign neoplasm of transverse colon; D12.8 Benign neoplasm of rectum; K63.5 Polyp of colon; K62.1 Rectal polyp; K57.30 Diverticulosis of large intestine without perforation or abscess without bleeding; C50.919 Malignant neoplasm of unspecified site of unspecified female breast; M17.12 Unilateral primary osteoarthritis, left knee; Z90.49 Acquired absence of other specified parts of digestive tract; Z88.2 Allergy status to sulfonamides; Z85.038 Personal history of other malignant neoplasm of large intestine; Z87.891 Personal history of nicotine dependence; Z83.71 Family history of colonic polyps; Z80.3 Family history of malignant neoplasm of breast; Z79.899 Other long term (current) drug therapy
CPT/HCPCS: 45380; 45385; J2001; J2704; J7120

== ENCOUNTER 2019-04-08 07:30 | Day surgery (SDC) | payer MEDICARE, BC ==
[2019-04-08] MEDS ORDERED: Midazolam 1 MG/ML 2 ML SDV ONE (08:26)
[2019-04-08] MEDS ORDERED: Propofol 200 MG/20 ML SDV ONE (08:26)
--- NOTE | 2019-04-08 08:39 | PCM.PREANE ---
Preanesthetic Assessment - Anesthesia/Transfusion/Family Hx Anesthesia History: Prior Anesthesia Without Reaction Family History of Anesthesia Reaction: No Transfusion History: No Prior Transfusion(s) - Review of Systems General: No Symptoms Pulmonary: No Symptoms Cardiovascular: No Symptoms Gastrointestinal: No Symptoms Neurological: No Symptoms Other: Reports: None - Physical Assessment NPO Status Date: 04/07/19 NPO Status Time: 19:00 Vital Signs: Last Vital Signs Temp 96.3 F 04/08/19 08:10 Pulse 75 04/08/19 08:10 Resp 16 04/08/19 08:10 BP 123/58 L 04/08/19 08:10 Pulse Ox 99 04/08/19 08:10 Height: 5 ft 3 in Weight: 70.307 kg ASA Class: 2 Mental Status: Alert & Oriented x3 Airway Class: Mallampati = 2 Dentition: Reports: Normal Dentition ROM/Head Extension: Full Lungs: Clear to Auscultation, Normal Respiratory Effort Cardiovascular: Regular Rate, Regular Rhythm - Allergies Allergies/Adverse Reactions: Allergies Allergy/AdvReac Type Severity Reaction Status Date / Time Sulfa (Sulfonamide Allergy Nausea and Verified 04/03/19 09:50 Antibiotics) Vomiting - Blood Blood Available: No - Anesthesia Plan Pre-Op Medication Ordered: None - Acknowledgements Anesthesia Type Planned: General Anesthesia Pt an Appropriate Candidate for the Planned Anesthesia: Yes Alternatives and Risks of Anesthesia Discussed w Pt/Guardian: Yes Pt/Guardian Understands and Agrees with Anesthesia Plan: Yes Additional Comments: PMH: s/p l hemicolectomy for cancer, macular degeneration PLAN: tiva PreAnesthesia Questionnaire HEENT History: Reports: Cataract, Hard of Hearing, Macular Degeneration, Other ( See Below) Other HEENT History: 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, wears glasses, juju hearing aids Cardiovascular History: Reports: Hypertension Respiratory History: Reports: None Gastrointestinal History: Reports: Colon Polyp, Other (See Below) Other Gastrointestinal History: hx colon cancer Genitourinary History: Reports: None 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 OB/BYN History: JUAN w/BSO Musculoskeletal History: Reports: Back Pain, Chronic, Osteoarthritis, Osteoporosis Neurological History: Reports: Vertigo Psychiatric History: Reports: None Endocrine/Metabolic History: Reports: None, Osteopenia Hematologic History: Reports: None Immunologic History: Reports: None Oncologic (Cancer) History: Reports: Breast, Colon Other Oncologic History: hx of endometrial cancer, skin cancer Dermatologic History: Reports: None - Infectious Disease History Infectious Disease History: Reports: Chicken Pox, Measles, Mumps, Shingles - Past Surgical History Head Surgeries/Procedures: Reports: None HEENT Surgical History: Reports: Cataract Surgery Cardiovascular Surgical History: Reports: None Respiratory Surgical History: Reports: None GI Surgical History: Reports: Colon, Colonoscopy Other GI Surgeries/Procedures: hx of left hemicolectomy Female Surgical History: Reports: Breast Biopsy, Hysterectomy, Salpingo- Oophorectomy Other Female Surgeries/Procedures: right breast lumpectomy with lymph node removal Endocrine Surgical History: Reports: None Neurological Surgical History: Reports: None Musculoskeletal Surgical History: Reports: Shoulder Surgery Other Musculoskeletal Surgeries/Procedures:: right shoulder ligament repair Oncologic Surgical History: Reports: Lumpectomy Other Oncologic Surgeries/Procedures: Hysterectomy, colon resection Dermatological Surgical History: Reports: Skin Biopsy - SUBSTANCE USE Smoking Status *Q: Former Smoker Tobacco Use Within Last Twelve Months: No Recreational Drug Use History: No - HOME MEDS Home Medications: Home Meds Anastrozole [Arimidex] 1 mg PO DAILY 07/07/17 [History] Calcium Carbonate/Vitamin D3 [Calcium 600-Vit D3 2,500 Sftgl] 1 tab PO DAILY [History] Ibandronate Sodium 1 tab PO ASDIRECTED 04/03/19 [History] Losartan Potassium 100 mg PO DAILY 04/03/19 [History] Pregabalin [Lyrica] 100 mg PO DAILY 04/03/19 [History] hydroCHLOROthiazide [Hydrochlorothiazide] 12.5 mg PO DAILY 04/03/19 [History] valACYclovir HCl [valACYclovir] 1 gm PO DAILY 04/03/19 [History] - CURRENT (IN HOUSE) MEDS Current Meds: Current Medications Lactated Ringer's (Ringers, Lactated) 1,000 mls @ 125 mls/hr IV ASDIRECTED MALDONADO Last Admin: 04/08/19 08:10 Dose: 125 mls/hr Sodium Chloride (Saline Flush) 10 ml FLUSH ASDIRECTED PRN PRN Reason: Keep Vein Open Sodium Chloride (Saline Flush) 2.5 ml FLUSH ASDIRECTED PRN PRN Reason: Keep Vein Open Sodium Chloride (Saline Flush) 10 ml FLUSH ASDIRECTED PRN PRN Reason: Keep Vein Open Sodium Chloride (Saline Flush) 2.5 ml FLUSH ASDIRECTED PRN PRN Reason: Keep Vein Open Sodium Chloride (Normal Saline) 10 ml IV ASDIRECTED PRN PRN Reason: IV Use Discontinued Medications Midazolam HCl (Versed 1 Mg/Ml) Confirm Administered Dose 2 mg .ROUTE .STK-MED ONE Stop: 04/08/19 08:27 Propofol (Diprivan 20 Ml) Confirm Administered Dose 400 mg .ROUTE .STK-MED ONE Stop: 04/08/19 08:27
--- NOTE | 2019-04-08 10:30 | PCM.POSTAN ---
POST ANESTHESIA ASSESSMENT - MENTAL STATUS Mental Status: Alert, Oriented - VITAL SIGNS Vital Signs: Last Vital Signs Temp 96.3 F 04/08/19 08:10 Pulse 72 04/08/19 10:25 Resp 11 L 04/08/19 10:25 BP 112/54 L 04/08/19 10:25 Pulse Ox 98 04/08/19 10:25 - RESPIRATORY Respiratory Status: Respiratory Rate WNL, Airway Patent, O2 Saturation Stable - CARDIOVASCULAR CV Status: Pulse Rate WNL, Blood Pressure Stable - GASTROINTESTINAL GI Status: No Symptoms - POST OP HYDRATION Hydration Status: Adequate & Stable
--- NOTE | 2019-04-08 10:30 | PCM48HPAN ---
Post Anesthesia Note - EVALUATION WITHIN 48HRS OF ANESTHETIC Vital Signs in Normal Range: Yes Patient Participated in Evaluation: Yes Respiratory Function Stable: Yes Airway Patent: Yes Cardiovascular Function Stable: Yes Hydration Status Stable: Yes Pain Control Satisfactory: Yes Nausea and Vomiting Control Satisfactory: Yes Mental Status Recovered: Yes Vital Signs: Last Vital Signs Temp 96.3 F 04/08/19 08:10 Pulse 72 04/08/19 10:25 Resp 11 L 04/08/19 10:25 BP 112/54 L 04/08/19 10:25 Pulse Ox 98 04/08/19 10:25
[2019-04-08 10:45] VITALS: BP 123/67; PULSE 77
--- NOTE | 2019-04-08 11:12 | PCM.OPNOTE ---
- General Post-Op/Procedure Note Date of Surgery/Procedure: 04/08/19 Operative Procedure(s): Diagnostic colonoscopy Findings: ascending colon polyp, hepatic flexure x 3, transverse colon polyp, staple line polyp, diverticulosis Pre Op Diagnosis: History of colon cancer Post-Op Diagnosis: ascending colon polyp, hepatic flexure polyp x 3, transverse colon polyp x 1, staple line polyp x 1 Anesthesia Technique: MAC Primary Surgeon: Ny Vega Condition: Good Free Text/Narrative:: Intake & Output 04/07/19 04/08/19 04/08/19 22:59 06:59 14:59 Intake Total 750 Balance 750
--- NOTE | 2019-04-08 11:28 | PCM.OPNOTE ---
- General Post-Op/Procedure Note Date of Surgery/Procedure: 04/08/19 Operative Procedure(s): Diagnostic colonoscopy Condition: Good Free Text/Narrative:: Intake & Output 04/07/19 04/08/19 04/08/19 22:59 06:59 14:59 Intake Total 750 Balance 750
--- NOTE | 2019-04-08 12:47 | OR ---
SURGEON: NY VEGA MD DATE OF PROCEDURE: 04/08/2019 PREOPERATIVE DIAGNOSIS: History of colon cancer. POSTOPERATIVE DIAGNOSES: 1. Ascending colon polyp. 2. Hepatic flexure polyp x3. 3. Transverse colon polyp x1. 4. Staple line polyp x1. 5. Diverticulosis. PROCEDURE PERFORMED: Diagnostic colonoscopy with polypectomy. PRIMARY SURGEON: Ny Vega MD. ANESTHESIA: MAC. INSTRUMENT USED: Olympus colonoscope. EXTENT OF EXAM: To the cecum. PREPARATION: Good. LIMITATIONS: None. INDICATIONS FOR EXAMINATION: The patient is an 84-year-old female who underwent a diagnostic colonoscopy last year and was found to have several polyps. The decision was made to proceed with a repeat colonoscopy this year. I explained the procedure; expected perioperative course; and the risks including bleeding, infection, or damage to surrounding structures including perforation. The patient verbalized understanding and wishes to proceed. PROCEDURE IN DETAIL: The patient was brought into the endoscopy suite and placed in the left lateral decubitus position. A time-out was completed verifying the patient's name, age, date of , allergies, and procedure to be performed. Monitored anesthesia care was induced and continuous oxygen was provided via nasal cannula throughout the procedure. After adequate sedation was achieved, a digital rectal exam was performed. This exam was within normal limits. A well-lubricated colonoscope was inserted in the rectum and advanced under direct visualization to the level of the cecum. The cecum was identified by both visual and anatomic landmarks. A photograph was taken of the cecal cap as well as with the scope retroflexed within the cecum. The scope was then fully withdrawn while examining the color, texture, anatomy, and integrity of the mucosa from the cecum to the anal canal. The patient was found to have a small sessile polyp in the ascending colon, which was removed in piecemeal fashion using cold biopsy forceps. Three more similar appearing polyps were found at the hepatic flexure and removed in similar fashion. In the transverse colon, the patient was found to have another sessile polyp. This was removed in piecemeal fashion using cold biopsy forceps. This was at 30 cm and was likely the area of concern during last year's colonoscopy. The staple line was at 20 cm. A small polyp was noted on this. This was removed and a staple came with the polyp. It was sent to Pathology, labeled as staple line polyp. The patient had diverticulosis in her distal colon. The scope was then brought into the rectum and retroflexed to allow visualization of the anal canal opening. This appeared normal and a photograph was taken. The scope was then straightened out and fully withdrawn. The cecum to anus time was 20 minutes. The patient tolerated the procedure well and was transferred to the PACU in stable condition. ENDOSCOPIC DIAGNOSES: 1. Ascending colon polyp. 2. Hepatic flexure polyp x3. 3. Transverse colon polyp x1. 4. Staple line polyp x1. 5. Diverticulosis. RECOMMENDATIONS: Follow up in clinic in 2 weeks. IRIS NORTH /[id number] [place]
== END 2019-04-08 10:55 | disposition home or self-care (01) ==
LOC: MW.SDS 07:30
PROVIDERS: ATTEND Surgery
DX: Z08 Encounter for follow-up examination after completed treatment for malignant neoplasm (principal); D12.2 Benign neoplasm of ascending colon; K63.5 Polyp of colon; K57.30 Diverticulosis of large intestine without perforation or abscess without bleeding; I10 Essential (primary) hypertension; M17.12 Unilateral primary osteoarthritis, left knee; Z87.891 Personal history of nicotine dependence; Z79.899 Other long term (current) drug therapy; Z88.2 Allergy status to sulfonamides; Z85.038 Personal history of other malignant neoplasm of large intestine; Z86.010 Personal history of colon polyps; Z90.49 Acquired absence of other specified parts of digestive tract
CPT/HCPCS: 45380; J2250; J2704; J7120

== ENCOUNTER 2022-08-31 07:38 | Day surgery (SDC) | payer MEDICARE, BC ==
[~2022-08-31 07:38] MED LIST changes: -Sodium Chloride 0.9% 10 ML SDV IV PRN; +Sodium Chloride 0.9% 20 ML SDV IV PRN
[2022-08-31] MEDS ORDERED: Lidocaine 2% 5 ML SDV ONE (08:32)
[2022-08-31] MEDS ORDERED: Propofol 200 MG/20 ML SDV ONE (08:33)
[2022-08-31] MEDS ORDERED: fentaNYL 100 MCG/2 ML SDV ONE (08:33)
[2022-08-31 11:30] VITALS: BP 107/51; PULSE 66
== END 2022-08-31 10:35 | disposition home or self-care (01) ==
LOC: MW.SDS 07:38
PROVIDERS: ATTEND Surgery
DX: D12.6 Benign neoplasm of colon, unspecified (principal); Z12.11 Encounter for screening for malignant neoplasm of colon; K31.89 Other diseases of stomach and duodenum; K44.9 Diaphragmatic hernia without obstruction or gangrene; I10 Essential (primary) hypertension; M19.90 Unspecified osteoarthritis, unspecified site; Z85.038 Personal history of other malignant neoplasm of large intestine; Z88.2 Allergy status to sulfonamides; Z79.899 Other long term (current) drug therapy; Z90.710 Acquired absence of both cervix and uterus; Z87.891 Personal history of nicotine dependence
CPT/HCPCS: 43239; 45380; J2704; J3010; J7120; 00813; 99100; J3490